=== PATIENT | female | born 1990 | race Caucasian/White ===

== ENCOUNTER 2019-01-22 23:06 | Inpatient (IN) | payer BC ==
[~2019-01-22] VITALS: Ht 160 cm; Wt 81.6 kg
[2019-01-22 23:10] VITALS: BP 130/90
--- NOTE | 2019-01-22 23:10 | NUR ---
ED Nurse Note: Pt BIBA after she was noted having a tonic-clonic seizure. Pt was sleeping at the time. Hospital personnel noted seizure activity while checking up on pt. Pt connected to monitor. VSS. Pt postictal, with slight confusion.
--- NOTE | 2019-01-22 23:25 | Emergency Room Report ---
History of Present Illness General Chief Complaint: Seizure Source: Patient, Friend, EMS Present Illness HPI Is a 28-year-old female with history of high blood pressure. She also has history of alcohol and benzodiazepine abuse. She is currently in a rehabilitation facility started today. She just came here from [place]. Her drug screen from this morning positive for benzodiazepine. She normally takes Klonopin to drug of choice. She also drank malt liquor. Last drink was yesterday. She presents with chief complaint of seizure. Witnessed by staff at the rehabilitation facility. It was a 2 minute tonic-clonic seizure activity. No incontinence of urine. She did have or trauma. Patient has no history of seizure. Allergies: Uncoded Allergies: PENICILLIN (Allergy, Unknown, 01/22/19) Patient History Past Medical History: see triage record, old chart reviewed, HTN Past Surgical History: other Pertinent Family History: none Social History: Reports: alcohol use; Denies: smoking Last Menstrual Period: unable to tell Now: No Immunizations: other Reviewed Nursing Documentation: PMH: Agreed; PSxH: Agreed Nursing Documentation-PMH Hx Hypertension: Yes Review of Systems Eye: Denies: eye pain, blurred vision ENT: Denies: ear pain, nose congestion, throat swelling Respiratory: Denies: cough, shortness of breath Cardiovascular: Denies: chest pain, palpitations Gastrointestinal: Denies: abdominal pain, diarrhea, nausea, vomiting Musculoskeletal: Denies: back pain, joint pain Skin: Denies: rash Neurological: Denies: headache, numbness Endocrine: Denies: increased thirst, increased urine Hematologic/Lymphatic: Denies: easy bruising All Other Systems: negative except mentioned in HPI Physical Exam Vital Signs Date Time Temp Pulse Resp B/P (MAP) Pulse Ox O2 Delivery O2 Flow Rate FiO2 01/22/19 23:03 98.6 100 18 130/90 97 vitals normal Sp02 EP Interpretation: reviewed, normal General Appearance: well appearing, no apparent distress, alert Head: normocephalic, atraumatic Eyes: bilateral eye PERRL, bilateral eye EOMI ENT: hearing grossly normal, normal pharynx, other - Abrasion to the tip of tongue Neck: full range of motion, supple, no meningismus Respiratory: chest non-tender, lungs clear, normal breath sounds Cardiovascular #1: regular rate, rhythm, no murmur Gastrointestinal: normal bowel sounds, non tender, no mass, no organomegaly, no bruit, non-distended Musculoskeletal: back normal, gait/station normal, normal range of motion Psychiatric: mood/affect normal Skin: warm/dry Procedures Critical Care Time Critical Care Time Critical care is mandated in this patient who presented with new onset seizure with severely low electrolytes. Patient require my urgent intervention to attenuate the risks of metabolic collapse which may lead to cardiovascular collapse and . Critical care time is 35 minutes excluding any reportable procedure. Critical care time included evaluation, multiple reevaluation, looking at old charts, interpreting laboratory and diagnostic data, discussing case with patient and family and consultants, and charting. Medical Decision Making Diagnostic Impression: Primary Impression: New onset seizure Additional Impressions: Hypokalemia Hyponatremia Hypomagnesemia ER Course Patient presents with new onset seizure. She has very low electrolytes. I spoke with her mom who is in [place]. Mom said that she has a problem with low potassium every time they go to the ER/urgent care for her rehabilitation. Said that potassium level usually runs in the 2 and she get medication discharge. No problem with sodium. Even though her electrolytes are severely low, EKG is normal and vitals are stable. Patient walking around without any difficulty. No evidence of any bleed or mass on the CT scan. Discussed the case with Dr. Lopez who was admitted for Dr. Braden. Lab Results Impression labs with electrolytes abnormality EKG Diagnostic Results Rate: normal Rhythm: NSR ST Segments: no acute changes Rhythm Strip Diag. Results EP Interpretation: yes Rate: 80 Rhythm: NSR, no PVC's, no ectopy CT/MRI/US Diagnostic Results CT/MRI/US Diagnostic Results : Imaging Test Ordered: CT head Impression negative per radiologist Last Vital Signs Date Time Temp Pulse Resp B/P (MAP) Pulse Ox O2 Delivery O2 Flow Rate FiO2 01/22/19 23:03 98.6 100 18 130/90 97 Status: improved Disposition: ADMITTED INPATIENT Condition: Serious Deny Esquivel MD Jan 22, 2019 23:25
[2019-01-22 23:29] LABS: HEMATOCRIT 36.4 % (37.0-47.0); HEMOGLOBIN 13.9 G/DL (12.0-16.0); MEAN CORPUSCULAR VOLUME 87 FL (80-99); PLATELET COUNT 72 K/UL (150-450); RED BLOOD COUNT 4.17 M/UL (4.20-5.40); RED CELL DISTRIBUTION WIDTH 12.3 % (11.6-14.8); WHITE BLOOD COUNT 9.2 K/UL (4.8-10.8)
[2019-01-22] MEDS ORDERED: levETIRAcetam 1,000mg/NS100ml 100 ML IVPB ONE (23:30)
[2019-01-22 23:34] LABS: ANION GAP 17 mmol/L (5-15); BLOOD UREA NITROGEN 9 mg/dL (7-18); CALCIUM 7.2 MG/DL (8.5-10.1); CARBON DIOXIDE 25 MMOL/L (21-32); CHLORIDE 76 MMOL/L (98-107); CREATININE 1.1 MG/DL (0.55-1.30)
[2019-01-22 23:47] LABS: POTASSIUM 2.1 MMOL/L (3.5-5.1); SODIUM 118 MMOL/L (136-145)
[2019-01-22 23:51] LABS: APPEARANCE,URINE CLEAR; BILIRUBIN, URINE NEGATIVE (NEGATIVE); COLOR,URINE PALE YELLOW; GLUCOSE, URINE (UA) NEGATIVE (NEGATIVE); KETONES,URINE NEGATIVE (NEGATIVE); LEUKOCYTE ESTERASE ,URINE NEGATIVE (NEGATIVE); NITRITE,URINE NEGATIVE (NEGATIVE); PH,URINE 7 (4.5-8.0); PROTEIN,URINE 3+ (NEGATIVE); UROBILINOGEN,URINE NORMAL MG/DL (0.0-1.0)
[2019-01-23 00:19] LABS: ANION GAP 13 mmol/L (5-15); BLOOD UREA NITROGEN 9 mg/dL (7-18); CALCIUM 7.2 MG/DL (8.5-10.1); CARBON DIOXIDE 29 MMOL/L (21-32); CHLORIDE 77 MMOL/L (98-107)
[2019-01-23 00:22] LABS: POTASSIUM 1.7 MMOL/L (3.5-5.1); SODIUM 118 MMOL/L (136-145)
--- NOTE | 2019-01-23 01:10 | Diagnostic Imaging Report ---
EXAM: CT Head Without Intravenous Contrast CLINICAL HISTORY: SZ TECHNIQUE: Axial computed tomography images of the head/brain without intravenous contrast. CTDI is 70 mGy and DLP is 1326 mGy-cm. One or more of the following dose reduction techniques were used: automated exposure control, adjustment of the mA and/or kV according to patient size, use of iterative reconstruction technique. COMPARISON: No relevant prior studies available. FINDINGS: Brain: No acute intracranial hemorrhage or cortical ischemia. Ventricles: Mild ventriculomegaly, cannot exclude normal pressure hydrocephalus. Bones/joints: Unremarkable. No acute fracture. Soft tissues: Unremarkable. Sinuses: Unremarkable as visualized. Mastoid air cells: Unremarkable as visualized. IMPRESSION: 1. No acute intracranial hemorrhage or cortical ischemia. 2. Mild ventriculomegaly, cannot exclude normal pressure hydrocephalus.
[2019-01-23] MEDS ORDERED: AMLODIPINE BES2.5 MG ORAL (01:32)
[2019-01-23] MEDS ORDERED: HYDROCHLOROTH12.5 M2 ORAL (01:32)
[2019-01-23] MEDS ORDERED: METOPROLOL TART25 MG ORAL (01:32)
--- NOTE | 2019-01-23 01:55 | NUR ---
ED Nurse Note: Pt resting comfortably. Has a RAC20g with Mag sulfate and a LAC with KCL currently running. VSS. Showing no signs of acute distress. Side rails padded. Will continue to monitor.
--- NOTE | 2019-01-23 02:00 | NUR ---
ED Nurse Note: Called Dilma Oviedo (mother) and advised of pt's admission. Phone #: [phone]
--- NOTE | 2019-01-23 03:48 | NUR ---
ED Nurse Note: Report given to BRITT Reyes. Pt currently resting comfotably. VSS. Showing no signs of distress.
--- NOTE | 2019-01-23 04:00 | NUR ---
ED Nurse Note: Pt brought up at 0400, accompanied by RN and ERT and connected to potline monitor. VSS. Shows no signs of cardiac or respiratory distress. Report given to BRITT Reyes and taken to telemetry unit rm [id number]. Family members called and advised of visit. All belongings taken upstairs along with belongings list.
[2019-01-23 04:20] VITALS: BP 105/60
--- NOTE | 2019-01-23 04:20 | NUR ---
Got report from Isela DE LA TORRE from ER. Initial assessment done. VSS. Pt in stable condition. Denies any pain. No s/s of distress noted. Pt resting in bed comfortably. Bed in low and locked position, call light within reach, bedside table within reach. Awaiting orders. Continue to monitor. Addendum: 01/23/19 at 0508 by Sourav Fisher RN Orders given by Dr. Lopez. Orders placed. continue to monitor.
--- NOTE | 2019-01-23 07:45 | NUR ---
HAND-OFF: Report given to meghana monae. endorsed plan of care.
--- NOTE | 2019-01-23 07:55 | NUR ---
NURSE NOTES: Report received from BRITT Nevarez. Patient AOx4. In RA. Denies any SOB or pain. IV on both L & R AC 20g, patent, flushed and SL. Seizure protocol in place. Bed in lowest position, side rails upx2, brakes engaged, call light within easy reach.
[2019-01-23 08:06] LABS: HEMATOCRIT 32.3 % (37.0-47.0); HEMOGLOBIN 12.4 G/DL (12.0-16.0); MEAN CORPUSCULAR VOLUME 88 FL (80-99); PLATELET COUNT 53 K/UL (150-450); RED BLOOD COUNT 3.67 M/UL (4.20-5.40); WHITE BLOOD COUNT 4.3 K/UL (4.8-10.8)
[2019-01-23 08:41] LABS: ANION GAP 13 mmol/L (5-15); BLOOD UREA NITROGEN 6 mg/dL (7-18); CALCIUM 7.3 MG/DL (8.5-10.1); CARBON DIOXIDE 23 MMOL/L (21-32); CHLORIDE 90 MMOL/L (98-107); CREATININE 0.8 MG/DL (0.55-1.30); POTASSIUM 2.5 MMOL/L (3.5-5.1); SODIUM 127 MMOL/L (136-145)
[2019-01-23] MEDS ORDERED: Sodium Chloride for KCL Premix x 2hrs IV SCH (10:00)
[2019-01-23] MEDS ORDERED: Gadavist 7.5mMol/7.5ml vial IV PRN (11:45)
[2019-01-23 12:00] VITALS: BP 131/84
--- NOTE | 2019-01-23 12:03 | Consultation ---
Consult Note Consult Note asked to assist with management of fluid and electrolytes s a 28-year-old female with history of high blood pressure. She also has history of alcohol and benzodiazepine abuse. She is currently in a rehabilitation facility started today. She just came here from [place]. Her drug screen from this morning positive for benzodiazepine. She normally takes Klonopin to drug of choice. She also drank malt liquor. Last drink was yesterday. She presents with chief complaint of seizure. Witnessed by staff at the rehabilitation facility. It was a 2 minute tonic-clonic seizure activity. No incontinence of urine. She did have or trauma. Patient has no history of seizure. Allergies: Uncoded Allergies: PENICILLIN (Allergy, Unknown, 01/22/19) Assessment/Plan Sz disorders Low Mag Low K Low NA HTN Mag IV BP med adjustment NS and KCL Monitor lytes per orders Mukul Mccracken MD Jan 23, 2019 12:03
[2019-01-23] MEDS ORDERED: Metoprolol 25mg tab ORAL SCH (12:15)
[2019-01-23 12:44] LABS: PHOSPHORUS 2.3 MG/DL (2.5-4.9)
[2019-01-23] MEDS: Thiamine 100mg tab ORAL SCH (13:11)
--- NOTE | 2019-01-23 14:24 | NUR ---
CASE MANAGEMENT: REVIEW BIBA FROM [facility] CC: SEIZURE SI: SEIZURE . HYPOKALEMIA T 98.6 HR 100 RR 18 BP 130/90 SAT 97% ROOM AIR MAG 0.3 K 2.5 IS: KEPPRA IV X1 KCl 20mEq IV X1 MAG SULFATE IV X1 NS IVF BOLUS X1 PATIENT ADMITTED TO TELEMETRY UNIT 01/23/2019 DCP: PATIENT IS FROM [facility]
[2019-01-23 15:01] LABS: POTASSIUM 2.6 MMOL/L (3.5-5.1)
[2019-01-23] MEDS: D5NS w/KCl 40mEq 1000ml 1,000 ML IV SCH (15:46)
[2019-01-23 16:00] VITALS: BP 127/75
[2019-01-23] MEDS: Magnesium Sulfate 1gm/100ml IVPB SCH ×2 (17:31→18:16)
--- NOTE | 2019-01-23 19:30 | NUR ---
NURSE NOTES: Communicated new Mg lab results with Dr. Mccracken, Mg IVPB order stopped.
[2019-01-23 20:00] VITALS: BP 130/81
--- NOTE | 2019-01-23 20:00 | NUR ---
NURSE NOTES: Received report from BRITT Klein. Patient awake, alert and verbally responsive. No SOB,no acute distress, denies any pain nor any discomfort at this time. Pt ambulatory, observed going to the bathroom with steady gait. IV sites on R AC # 20 and L Ac #20, both patent and intact, L one connected to D5NS with 40 mEq KCl at 75 ml/hr. Sz precautions in place. Per Latoya, Mg orders just discontinued by Dr. Mccracken, mg level within range. Also with order for US Abd in AM, explained to pt that will hold breakfast in AM until the ultrasound done, verbalized understanding. Bed at lowest position and call light within reach. Will continue plan of care.
--- NOTE | 2019-01-23 20:11 | Consultation ---
History of Present Illness General Chief Complaint: Seizure Present Illness Allergies: Uncoded Allergies: PENICILLIN (Allergy, Unknown, 01/22/19) Medication History Scheduled Amlodipine Besylate* (Amlodipine Besylate*), 2.5 MG ORAL DAILY, (Reported) Hydrochlorothiazide* (Hydrochlorothiazide*), 12.5 MG ORAL DAILY, (Reported) Metoprolol Tartrate* (Metoprolol Tartrate*), 25 MG ORAL EVERY 12 HOURS, ( Reported) Patient History Healthcare decision maker Resuscitation status Advanced Directive on File Physical Exam Last 24 Hour Vital Signs Date Time Temp Pulse Resp B/P (MAP) Pulse Ox O2 Delivery O2 Flow Rate FiO2 01/23/19 16:00 88 01/23/19 16:00 98.1 87 18 127/75 (92) 99 01/23/19 13:29 100 131/84 01/23/19 12:00 98.2 100 16 131/84 (100) 100 01/23/19 12:00 78 01/23/19 08:00 101 01/23/19 05:54 Room Air 01/23/19 04:23 98.9 98 23 120/98 96 Room Air 01/23/19 04:20 86 01/23/19 04:20 98.0 92 18 105/60 (75) 98 01/22/19 23:10 98.6 100 18 130/90 97 Room Air 01/22/19 23:10 100 18 Room Air 01/22/19 23:03 98.6 100 18 130/90 97 Intake and Output 01/22/19 01/23/19 19:00 07:00 Intake Total 2550 ml Balance 2550 ml IV Total 2550 ml # Voids 1 Laboratory Tests Test 01/22/19 23:00 01/22/19 23:35 01/22/19 23:59 01/23/19 07:48 White Blood Count 9.2 K/UL (4.8-10.8) 4.3 K/UL (4.8-10.8) #L Red Blood Count 4.17 M/UL (4.20-5.40) L 3.67 M/UL (4.20-5.40) L Hemoglobin 13.9 G/DL (12.0-16.0) 12.4 G/DL (12.0-16.0) Hematocrit 36.4 % (37.0-47.0) L 32.3 % (37.0-47.0) L Mean Corpuscular Volume 87 FL (80-99) 88 FL (80-99) Mean Corpuscular Hemoglobin 33.3 PG (27.0-31.0) H 33.7 PG (27.0-31.0) H Mean Corpuscular Hemoglobin Concent 38.2 G/DL (32.0-36.0) H 38.3 G/DL (32.0-36.0) H Red Cell Distribution Width 12.3 % (11.6-14.8) 13.0 % (11.6-14.8) Platelet Count 72 K/UL (150-450) L 53 K/UL (150-450) L Mean Platelet Volume 8.8 FL (6.5-10.1) 7.8 FL (6.5-10.1) Neutrophils (%) (Auto) % (45.0-75.0) % (45.0-75.0) Lymphocytes (%) (Auto) % (20.0-45.0) % (20.0-45.0) Monocytes (%) (Auto) % (1.0-10.0) % (1.0-10.0) Eosinophils (%) (Auto) % (0.0-3.0) % (0.0-3.0) Basophils (%) (Auto) % (0.0-2.0) % (0.0-2.0) Sodium Level 118 MMOL/L (136-145) *L 118 MMOL/L (136-145) *L 127 MMOL/L (136-145) L Potassium Level 2.1 MMOL/L (3.5-5.1) *L 1.7 MMOL/L (3.5-5.1) *L 2.5 MMOL/L (3.5-5.1) *L Chloride Level 76 MMOL/L (98-107) L 77 MMOL/L (98-107) L 90 MMOL/L (98-107) L Carbon Dioxide Level 25 MMOL/L (21-32) 29 MMOL/L (21-32) 23 MMOL/L (21-32) Anion Gap 17 mmol/L (5-15) H 13 mmol/L (5-15) 13 mmol/L (5-15) Blood Urea Nitrogen 9 mg/dL (7-18) 9 mg/dL (7-18) 6 mg/dL (7-18) L Creatinine 1.1 MG/DL (0.55-1.30) 1.0 MG/DL (0.55-1.30) 0.8 MG/DL (0.55-1.30) Estimat Glomerular Filtration Rate 58.3 mL/min (>60) > 60 mL/min (>60) > 60 mL/min (>60) Glucose Level 145 MG/DL (74-106) H 145 MG/DL (74-106) H 122 MG/DL (74-106) H Calcium Level 7.2 MG/DL (8.5-10.1) L 7.2 MG/DL (8.5-10.1) L 7.3 MG/DL (8.5-10.1) L Urine Color Pale yellow Urine Appearance Clear Urine pH 7 (4.5-8.0) Urine Specific [place] 1.010 (1.005-1.035) Urine Protein 3+ (NEGATIVE) H Urine Glucose (UA) Negative (NEGATIVE) Urine Ketones Negative (NEGATIVE) Urine Blood 2+ (NEGATIVE) H Urine Nitrite Negative (NEGATIVE) Urine Bilirubin Negative (NEGATIVE) Urine Urobilinogen Normal MG/DL (0.0-1.0) Urine Leukocyte Esterase Negative (NEGATIVE) Urine RBC 2-4 /HPF (0 - 2) H Urine WBC 0-2 /HPF (0 - 2) Urine Squamous Epithelial Cells Few /LPF (NONE/OCC) Urine Bacteria Few /HPF (NONE) Urine HCG, Qualitative Negative (NEGATIVE) Magnesium Level 0.3 MG/DL (1.8-2.4) *L 1.2 MG/DL (1.8-2.4) L Differential Total Cells Counted 100 Neutrophils % (Manual) 71 % (45-75) Lymphocytes % (Manual) 22 % (20-45) Monocytes % (Manual) 7 % (1-10) Eosinophils % (Manual) 0 % (0-3) Basophils % (Manual) 0 % (0-2) Band Neutrophils 0 % (0-8) Platelet Estimate Decreased L Platelet Morphology Normal Red Blood Cell Morphology Normal Uric Acid 7.0 MG/DL (2.6-7.2) Phosphorus Level 2.3 MG/DL (2.5-4.9) L C-Reactive Protein, Quantitative < 0.4 mg/dL (0.00-0.90) Test 01/23/19 14:45 Potassium Level 2.6 MMOL/L (3.5-5.1) *L Magnesium Level 2.1 MG/DL (1.8-2.4) Height (Feet): 5 Height (Inches): 3.00 Weight (Pounds): 180 Medications Current Medications Medications (Trade) Dose Ordered Sig/Lul Route PRN Reason Start Time Stop Time Status Last Admin Dose Admin Clonidine HCl (Catapres Tab) 0.1 mg Q4H PRN ORAL bp over 160 syst 01/23/19 12:15 02/22/19 12:14 Dextrose (Dextrose 50%) 25 ml Q30M PRN IV Hypoglycemia 01/23/19 12:45 02/22/19 12:44 Dextrose (Dextrose 50%) 50 ml Q30M PRN IV Hypoglycemia 01/23/19 12:45 02/22/19 12:44 Dextrose/ Electrolytes 1,000 ml @ 75 mls/hr [id number] IV 01/23/19 13:00 02/22/19 12:59 01/23/19 15:46 Gadobutrol (Gadavist) 7.5 mmol NOW PRN IV RADIOLOGY 01/23/19 11:45 01/23/19 23:59 Levetiracetam (Keppra) 500 mg Q12HR ORAL 01/23/19 21:00 02/22/19 20:59 Metoprolol Tartrate (Lopressor) 25 mg Q12HR ORAL 01/23/19 21:00 02/22/19 20:59 Pantoprazole (Protonix) 40 mg EVERY 12 HOURS ORAL 01/23/19 12:15 02/22/19 12:14 01/23/19 13:10 Potassium Chloride (K-Dur) 40 meq THREE TIMES A DAY ORAL 01/23/19 12:00 02/22/19 11:59 01/23/19 18:15 Thiamine HCl (Vitamin B1) 100 mg DAILY ORAL 01/23/19 12:15 02/22/19 12:14 01/23/19 13:11 Blaine Figueroa MD Jan 23, 2019 20:11
--- NOTE | 2019-01-23 20:46 | NUR ---
HAND-OFF: Report given to BRITT Erwin. Patient in stable condition.
[2019-01-23] MEDS: Metoprolol 25mg tab ORAL SCH (20:47)
--- NOTE | 2019-01-23 21:58 | History and Physical ---
History of Present Illness General Date patient seen: Jan 23, 2019 Time patient seen: 09:10 Reason for Hospitalization: Seizure Present Illness HPI 28 year old female with hx of HTN, ETOH and benzo abuse was transferred from rehab facility s/p seizure. Per EMR, seizure lasted about 2 minutes, tonic- clonic, no urinary or bowel incontinence. Pt recently arrived from [place] and admitted to rehab facility today. States she has never had history of seizures before, denies hx of head trauma, fevers, chills, n/v/c/d, urinary complaints or abdominal complaints. Inthe ED, pt noted to have severe electrolyte abnormalities, EKG unremarkable, CT with no bleed or mass, pts electrolytes were repleted and loaded with keppra. Allergies: Uncoded Allergies: PENICILLIN (Allergy, Unknown, 01/22/19) Medication History Scheduled Amlodipine Besylate* (Amlodipine Besylate*), 2.5 MG ORAL DAILY, (Reported) Hydrochlorothiazide* (Hydrochlorothiazide*), 12.5 MG ORAL DAILY, (Reported) Metoprolol Tartrate* (Metoprolol Tartrate*), 25 MG ORAL EVERY 12 HOURS, ( Reported) Patient History Healthcare decision maker Resuscitation status Advanced Directive on File Past Medical/Surgical History Past Medical/Surgical History: (1) Hypertension (2) Thrombocythemia (3) Hypomagnesemia (4) Hypokalemia (5) Hyponatremia (6) New onset seizure Review of Systems Constitutional: Reports: no symptoms Eye: Reports: no symptoms ENT: Reports: no symptoms Respiratory: Reports: no symptoms Cardiovascular: Reports: no symptoms Gastrointestinal: Reports: no symptoms Genitourinary: Reports: no symptoms Musculoskeletal: Reports: no symptoms Skin: Reports: no symptoms Psychiatric: Reports: no symptoms Neurological: Reports: no symptoms Endocrine: Reports: no symptoms Hematologic/Lymphatic: Reports: no symptoms Physical Exam General Appearance: WD/WN, no apparent distress, alert, lethargic Lines, tubes and drains: peripheral HEENT: normocephalic, atraumatic, anicteric, mucous membranes moist, PERRL Neck: non-tender, normal alignment, supple, normal inspection Respiratory/Chest: chest wall non-tender, lungs clear, normal breath sounds, no respiratory distress, no accessory muscle use Cardiovascular/Chest: normal peripheral pulses, normal rate, regular rhythm, regularly irregular Abdomen: normal bowel sounds, non tender, soft, no organomegaly, no mass Extremities: normal range of motion Skin Exam: normal pigmentation 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 Musculoskeletal: normal muscle bulk Last 24 Hour Vital Signs Date Time Temp Pulse Resp B/P (MAP) Pulse Ox O2 Delivery O2 Flow Rate FiO2 01/23/19 20:47 90 130/81 01/23/19 16:00 88 01/23/19 16:00 98.1 87 18 127/75 (92) 99 01/23/19 13:29 100 131/84 01/23/19 12:00 98.2 100 16 131/84 (100) 100 01/23/19 12:00 78 01/23/19 09:00 Room Air 01/23/19 08:00 101 01/23/19 05:54 Room Air 01/23/19 04:23 98.9 98 23 120/98 96 Room Air 01/23/19 04:20 86 01/23/19 04:20 98.0 92 18 105/60 (75) 98 01/22/19 23:10 98.6 100 18 130/90 97 Room Air 01/22/19 23:10 100 18 Room Air 01/22/19 23:03 98.6 100 18 130/90 97 Intake and Output 01/22/19 01/23/19 19:00 07:00 Intake Total 2550 ml Balance 2550 ml IV Total 2550 ml # Voids 1 Laboratory Tests Test 01/22/19 23:00 01/22/19 23:35 01/22/19 23:59 01/23/19 07:48 White Blood Count 9.2 K/UL (4.8-10.8) 4.3 K/UL (4.8-10.8) #L Red Blood Count 4.17 M/UL (4.20-5.40) L 3.67 M/UL (4.20-5.40) L Hemoglobin 13.9 G/DL (12.0-16.0) 12.4 G/DL (12.0-16.0) Hematocrit 36.4 % (37.0-47.0) L 32.3 % (37.0-47.0) L Mean Corpuscular Volume 87 FL (80-99) 88 FL (80-99) Mean Corpuscular Hemoglobin 33.3 PG (27.0-31.0) H 33.7 PG (27.0-31.0) H Mean Corpuscular Hemoglobin Concent 38.2 G/DL (32.0-36.0) H 38.3 G/DL (32.0-36.0) H Red Cell Distribution Width 12.3 % (11.6-14.8) 13.0 % (11.6-14.8) Platelet Count 72 K/UL (150-450) L 53 K/UL (150-450) L Mean Platelet Volume 8.8 FL (6.5-10.1) 7.8 FL (6.5-10.1) Neutrophils (%) (Auto) % (45.0-75.0) % (45.0-75.0) Lymphocytes (%) (Auto) % (20.0-45.0) % (20.0-45.0) Monocytes (%) (Auto) % (1.0-10.0) % (1.0-10.0) Eosinophils (%) (Auto) % (0.0-3.0) % (0.0-3.0) Basophils (%) (Auto) % (0.0-2.0) % (0.0-2.0) Sodium Level 118 MMOL/L (136-145) *L 118 MMOL/L (136-145) *L 127 MMOL/L (136-145) L Potassium Level 2.1 MMOL/L (3.5-5.1) *L 1.7 MMOL/L (3.5-5.1) *L 2.5 MMOL/L (3.5-5.1) *L Chloride Level 76 MMOL/L (98-107) L 77 MMOL/L (98-107) L 90 MMOL/L (98-107) L Carbon Dioxide Level 25 MMOL/L (21-32) 29 MMOL/L (21-32) 23 MMOL/L (21-32) Anion Gap 17 mmol/L (5-15) H 13 mmol/L (5-15) 13 mmol/L (5-15) Blood Urea Nitrogen 9 mg/dL (7-18) 9 mg/dL (7-18) 6 mg/dL (7-18) L Creatinine 1.1 MG/DL (0.55-1.30) 1.0 MG/DL (0.55-1.30) 0.8 MG/DL (0.55-1.30) Estimat Glomerular Filtration Rate 58.3 mL/min (>60) > 60 mL/min (>60) > 60 mL/min (>60) Glucose Level 145 MG/DL (74-106) H 145 MG/DL (74-106) H 122 MG/DL (74-106) H Calcium Level 7.2 MG/DL (8.5-10.1) L 7.2 MG/DL (8.5-10.1) L 7.3 MG/DL (8.5-10.1) L Urine Color Pale yellow Urine Appearance Clear Urine pH 7 (4.5-8.0) Urine Specific [place] 1.010 (1.005-1.035) Urine Protein 3+ (NEGATIVE) H Urine Glucose (UA) Negative (NEGATIVE) Urine Ketones Negative (NEGATIVE) Urine Blood 2+ (NEGATIVE) H Urine Nitrite Negative (NEGATIVE) Urine Bilirubin Negative (NEGATIVE) Urine Urobilinogen Normal MG/DL (0.0-1.0) Urine Leukocyte Esterase Negative (NEGATIVE) Urine RBC 2-4 /HPF (0 - 2) H Urine WBC 0-2 /HPF (0 - 2) Urine Squamous Epithelial Cells Few /LPF (NONE/OCC) Urine Bacteria Few /HPF (NONE) Urine HCG, Qualitative Negative (NEGATIVE) Magnesium Level 0.3 MG/DL (1.8-2.4) *L 1.2 MG/DL (1.8-2.4) L Differential Total Cells Counted 100 Neutrophils % (Manual) 71 % (45-75) Lymphocytes % (Manual) 22 % (20-45) Monocytes % (Manual) 7 % (1-10) Eosinophils % (Manual) 0 % (0-3) Basophils % (Manual) 0 % (0-2) Band Neutrophils 0 % (0-8) Platelet Estimate Decreased L Platelet Morphology Normal Red Blood Cell Morphology Normal Uric Acid 7.0 MG/DL (2.6-7.2) Phosphorus Level 2.3 MG/DL (2.5-4.9) L C-Reactive Protein, Quantitative < 0.4 mg/dL (0.00-0.90) Test 01/23/19 14:45 Potassium Level 2.6 MMOL/L (3.5-5.1) *L Magnesium Level 2.1 MG/DL (1.8-2.4) Height (Feet): 5 Height (Inches): 3.00 Weight (Pounds): 180 Medications Current Medications Medications (Trade) Dose Ordered Sig/Lul Route PRN Reason Start Time Stop Time Status Last Admin Dose Admin Clonidine HCl (Catapres Tab) 0.1 mg Q4H PRN ORAL bp over 160 syst 01/23/19 12:15 02/22/19 12:14 Dextrose (Dextrose 50%) 25 ml Q30M PRN IV Hypoglycemia 01/23/19 12:45 02/22/19 12:44 Dextrose (Dextrose 50%) 50 ml Q30M PRN IV Hypoglycemia 01/23/19 12:45 02/22/19 12:44 Dextrose/ Electrolytes 1,000 ml @ 75 mls/hr [id number] IV 01/23/19 13:00 02/22/19 12:59 01/23/19 15:46 Gadobutrol (Gadavist) 7.5 mmol NOW PRN IV RADIOLOGY 01/23/19 11:45 01/23/19 23:59 Levetiracetam (Keppra) 500 mg Q12HR ORAL 01/23/19 21:00 02/22/19 20:59 01/23/19 20:46 Metoprolol Tartrate (Lopressor) 25 mg Q12HR ORAL 01/23/19 21:00 02/22/19 20:59 01/23/19 20:47 Pantoprazole (Protonix) 40 mg EVERY 12 HOURS ORAL 01/23/19 12:15 02/22/19 12:14 01/23/19 20:46 Potassium Chloride (K-Dur) 40 meq THREE TIMES A DAY ORAL 01/23/19 12:00 02/22/19 11:59 01/23/19 18:15 Thiamine HCl (Vitamin B1) 100 mg DAILY ORAL 01/23/19 12:15 02/22/19 12:14 01/23/19 13:11 Assessment/Plan Status: stable Assessment/Plan Assessment 28 year old female with PMH of htn, etoh and benzo abuse presented admitted for new onset seizures Plan #New onset seizures likely multifactorial: electrolyte abnormalities/ ETOH w/d/ Benzo withdraw #ETOH abuse #Benzo abuse -seizure precautions -s/p keppra load in ED -CT head unremarkable -Neurology consulted -Will cont keppra for now -pending MRI brain -monitor for withdraw - no signs of withdraw on examination #Hypokalemia #Hypomagnesemia #Hyponatremia -repleted with IV -CTM -Appreciate nephrology consult -hold HCTZ #HTN -Cont metoprolol -discontinue HCTZ due to electrolyte abnormalities -can add norvasc if needed #THrombocytopenia -likley 2/2 etoh abuse, liver injury -pending LFT -pending abd US -CTM -hold heparin products -Hematology consulted Code status with discussion: Full I spent 75 min on this patients care, and 40 min was dedicated to counseling and /or care coordination - Marlen Pruett MD Jan 23, 2019 21:58
[2019-01-24] VITALS (7 sets, daily range): BP systolic 105–146; BP diastolic 60–93
[2019-01-24] MEDS: D5NS w/KCl 40mEq 1000ml 1,000 ML IV SCH (03:00)
--- NOTE | 2019-01-24 03:03 | NUR ---
NURSE NOTES: Patient asleep, breathing even and unlabored, no s/sx of pain nor any discomfort at this time. No episode of seizure noted at this time. Bed at lowest position, call light within reach. Will continue to monitor.
--- NOTE | 2019-01-24 05:16 | Consultation ---
DATE OF CONSULTATION: 01/23/2019 NEUROLOGICAL CONSULTATION CONSULTING PHYSICIAN: Mauro Villa M.D. CHIEF COMPLAINT: This is a first [facility] admission for this 28-year-old right-handed white female alcoholic, who was admitted with a chief complaint of seizure. HISTORY OF PRESENT ILLNESS: The patient's family just came here from [place]. She has a history of alcohol and benzodiazepine abuse and told me she last stopped drinking two weeks ago. She also complained of a lot of diarrhea. She denied any other drug abuse, although she apparently was on Klonopin. Other history obtained, her last drink was yesterday. She was at a rehabilitation facility, had a generalized seizure lasting 2 minutes and without incontinence and was brought here by paramedics. In the ER, she had a CT scan of the brain, which revealed mild ventriculomegaly. She had a serum sodium of 118 with a potassium of 2.1, glucose of 145, calcium of 7.2. Her magnesium was initially 0.3. She was given magnesium in the ER. Her serum sodium today is 127. Her magnesium today is 1.2. Her chloride was 76 on admission, now it is 90. BUN was 9 on admission with a creatinine of 1.1. The patient's hemoglobin was 13.9, but the RBC count was low at 4.17. There was mild microcytosis noted. Platelet count was 72,000. She had an EKG, which revealed a prolonged QT interval, highly abnormal. The patient was started on Keppra 1000 mg and given 1 g of magnesium sulfate . She is also started on potassium and normal saline. Urinalysis revealed +2 blood in the urine, +3 protein, specific gravity was 1.010, urine pH was 7, and has a few bacteria in the urine. There was some positive benzodiazepines in the urine. PAST MEDICAL HISTORY/PAST MEDICAL ILLNESSES: The patient has had some headache problems in the past, but not recently. She has tremor in her hands and arms recently. There are no previous seizures. No gait disorder. There is no diplopia, loss of smell or taste or blurred vision. She denies any hearing loss or tinnitus. She complains of dizzy spells, but cannot describe them. Her memory is "good." She complains of muscle weakness in the leg began yesterday or the day before. This was associated with some dizziness. She denies any vomiting. She impaired. She used to drink one bottle a day, probably malt liquor. She denies any febrile seizures and no head injuries or strokes. No fever or chills. The patient has a family history of Alzheimer disease and Parkinson's. Alcohol and drug abuse, see above. ALLERGIES: She is allergic to penicillin. HABITS: See above. She smokes only while drinking and as much as a pack a day. She denies illegal drug use. SURGERIES: She had a and a lap band in April 2010. She used to weigh 232 pounds. FAMILY HISTORY: Mother has hypertension. Her father is allegedly in good health. Her brother is allegedly in good health. REVIEW OF SYSTEMS: Her appetite is "non-existing" for a few days. There is no abdominal pain.CARDIOPULMONARY: She complains of occasional shortness of breath. There is no chronic cough or hemoptysis. She has significant chest pain. The rest of the review of systems is noncontributory. PHYSICAL EXAMINATION: GENERAL: She is a well-developed, obese woman, lying in bed, in no acute distress. VITAL SIGNS: Blood pressure is 120/90, pulse oximetry of 96% on room air, temperature is 98.6 degrees, pulse rate is 101 and regular, and respiratory rate is 23. HEENT: Examination of the head, ears, eye, nose, mouth, and throat is basically intact without evidence of head injuries. She had abrasions under the tongue laterally. NECK: There is no tenderness to palpation or muscle spasm. Limitation of motion. Supple. Carotids are +2 without any bruits. LUNGS: Clear to auscultation. CARDIOVASCULAR: PMI was not felt. JVP appeared to be flat. The patient's heart tones are somewhat distant. She had a normal S1 and S2, it is physiologically split, I cannot hear S3, S4, murmurs, or rubs. ABDOMEN: Abdomen is obese. Bowel sounds intact. I felt the liver edge. There is no tenderness of the liver. No evidence of splenomegaly. Bowel sounds were intact. BACK: There is no tenderness to percussion. No muscle spasms. EXTREMITIES: Peripheral pulses are +2. There were some abrasions in the extremities. NEUROLOGIC: Mental status, she is alert and awake. Judgment, her judgment is fair. Affect was appropriate. Her mood is a little flat. Memory, past memory is intact to date of , mother's maiden name and recalls 3/3 objects, recent recall is 2/3 objects. Intellect, similarities are abstract . . Orientation, she knew it is 01/23/2019, and knows it is Friday. She knows she is in the hospital and knows which one. She knew it is the second floor. Person, she was oriented to person. Language function, spoken speech was slow without paraphasias. Comprehension and repetitions were intact. There was no confusion or finger agnosia. She could spell world backwards and forwards. CRANIAL NERVE EXAMINATION: CRANIAL NERVE II: Visual hunt are intact to confrontation. Visual acuity not tested. CRANIAL NERVES III, IV, AND : Extraocular motility was full. Saccade pursuit . Pupils are 5 mm round and light reactive. CRANIAL NERVE V: Facial and corneal sensations were intact to fine touch. Pterygoid strength is 5/5. CRANIAL NERVE VII: Facial strength is 5/5 bilaterally. CRANIAL NERVE VIII: Auditory acuity was intact bilaterally. CRANIAL NERVES IX AND X: Gag is intact bilaterally. CRANIAL NERVE XI: Sternocleidomastoid strength is 5/5. CRANIAL NERVE XII: Tongue protrudes in the midline without fasciculations or atrophy. MUSCULOSKELETAL: Muscle bulk and tone are normal. Strength is 5/5 proximally and distally without pronator drift. However, there is fine tremor with the hands extended. No asterixis noted. Reflexes are +2 in the upper extremities, +1.5 to 2 at the knees, 0 at the ankles with downgoing toes and testing for Babinski response. COORDINATION: [id number] with end point tremor bilaterally. [id number] testing is normal. Rapid alternating movements are slow. GAIT AND STATION: Not tested. SENSORY: Pinprick, light touch, and proprioception intact. IMPRESSION: The patient's history is problematic. Her seizure is probably due to at least three things: 1. Low magnesium. 2. Alcohol withdrawal. 3. Hyponatremia. Technically, this is a reactive seizure and does not need to be treated. However, I will continue her Keppra for the time being until she is at least stable and can think about tapering it. The dose can be 500 mg b.i.d. The patient deserves at least one workup. The patient has ventriculomegaly on the CT scan, does not appear to have a history of hydrocephalus, may just be atrophy. MRI scan of the brain and EEG should be attained. PLAN: 1. Keppra 500 mg p.o. b.i.d. 2. EEG. 3. MRI scan of the brain. 4. Continue electrolyte replacement. 5. RPR and FTA. 6. Evaluate for liver disease and B12 level. Mauro Villa MD DR: TEN JOB#: [id number] CC:
--- NOTE | 2019-01-24 07:08 | NUR ---
HAND-OFF: Report given to BRITT Guy. No episodes of sz at this shift.Endorsed plan of care.
--- NOTE | 2019-01-24 07:30 | NUR ---
NURSE NOTES: Received report from BRITT Patricia. Pt is laying in bed. No distress noted. Bed is in lowest position, side rails up X2, and call light is within reach. Will continue to monitor.
[2019-01-24 08:26] LABS: HEMATOCRIT 30.4 % (37.0-47.0); HEMOGLOBIN 11.1 G/DL (12.0-16.0); MEAN CORPUSCULAR VOLUME 92 FL (80-99); PLATELET COUNT 66 K/UL (150-450); RED BLOOD COUNT 3.29 M/UL (4.20-5.40); RED CELL DISTRIBUTION WIDTH 14.5 % (11.6-14.8); WHITE BLOOD COUNT 3.7 K/UL (4.8-10.8)
[2019-01-24] MEDS: Thiamine 100mg tab ORAL SCH (08:32)
[2019-01-24] MEDS: Metoprolol 25mg tab ORAL SCH (08:33)
[2019-01-24 09:04] LABS: ALANINE AMINOTRANSFERASE 134 U/L (12-78); ALBUMIN 2.9 G/DL (3.4-5.0); ALBUMIN/GLOBULIN RATIO 0.9 (1.0-2.7); ALKALINE PHOSPHATASE 209 U/L (46-116); ANION GAP 8 mmol/L (5-15); ASPARTATE AMINO TRANSFERASE 240 U/L (15-37); BILIRUBIN,TOTAL 2.2 MG/DL (0.2-1.0); BLOOD UREA NITROGEN 2 mg/dL (7-18); CALCIUM 8.1 MG/DL (8.5-10.1); CARBON DIOXIDE 27 MMOL/L (21-32); CHLORIDE 102 MMOL/L (98-107); CHOLESTEROL 174 MG/DL (< 200); CREATINE KINASE 275 U/L (26-308); CREATININE 0.6 MG/DL (0.55-1.30); GAMMA GLUTAMYL TRANSPEPTIDASE 3184 U/L (5-85); HDL CHOLESTEROL 20 MG/DL (40-60); PHOSPHORUS 1.5 MG/DL (2.5-4.9); POTASSIUM 3.2 MMOL/L (3.5-5.1); SODIUM 137 MMOL/L (136-145); TRIGLYCERIDES 486 MG/DL (30-150)
[2019-01-24 09:06] LABS: BILIRUBIN,DIRECT 1.2 MG/DL (0.0-0.3)
[2019-01-24] MEDS ORDERED: D5NS 1,000 ML IV SCH (09:20)
[2019-01-24 09:31] LABS: FERRITIN 1370 NG/ML (8-388); LACTATE DEHYDROGENASE 354 U/L (81-234)
[2019-01-24] MEDS ORDERED: Potassium Phosphate 30 MM in NS 275 ML IV SCH (11:00)
--- NOTE | 2019-01-24 12:23 | Nephrology Progress Note ---
Assessment/Plan Problem List: (1) Hypomagnesemia (2) Hypokalemia (3) Hyponatremia (4) Hypertension (5) New onset seizure (6) Alcoholic liver disease Assessment Sz disorders Low Mag Low K Low NA HTN Fatty / Alcoholic liver Plan Mag IV BP med adjustment NS and KCL Monitor lytes per orders Subjective ROS Limited/Unobtainable: No Constitutional: Reports: other - feels better Objective Objective Last 24 Hour Vital Signs Date Time Temp Pulse Resp B/P (MAP) Pulse Ox O2 Delivery O2 Flow Rate FiO2 01/24/19 09:00 Room Air 01/24/19 08:33 89 146/89 01/24/19 08:00 84 01/24/19 08:00 98.2 106 18 146/89 (108) 98 01/24/19 04:00 98.8 90 18 131/74 (93) 93 01/24/19 04:00 90 01/24/19 00:00 98.6 89 18 105/60 (75) 93 01/24/19 00:00 85 01/23/19 21:00 Room Air 01/23/19 20:47 90 130/81 01/23/19 20:00 96 01/23/19 20:00 97.9 78 18 130/81 (97) 99 01/23/19 16:00 88 01/23/19 16:00 98.1 87 18 127/75 (92) 99 01/23/19 13:29 100 131/84 Intake and Output 01/23/19 01/24/19 19:00 07:00 Intake Total 2800 ml 1350 ml Balance 2800 ml 1350 ml Intake Oral 2800 ml 600 ml IV Total 750 ml # Voids 4 5 # Bowel Movements 1 Laboratory Tests 01/23/19 14:45: Potassium Level 2.6*L, Magnesium Level 2.1 01/24/19 06:00: Urine Opiates Screen Negative, Urine Barbiturates Screen Negative, Phencyclidine (PCP) Screen Negative, Urine Amphetamines Screen Negative, Urine Benzodiazepines Screen Negative, Urine Cocaine Screen Negative, Urine Marijuana (THC) Screen Negative 01/24/19 07:51: Potassium Level 3.2L, Magnesium Level 1.9, White Blood Count 3.7L, Red Blood Count 3.29L, Hemoglobin 11.1L, Hematocrit 30.4L, Mean Corpuscular Volume 92, Mean Corpuscular Hemoglobin 33.7H, Mean Corpuscular Hemoglobin Concent 36.6H, Red Cell Distribution Width 14.5, Platelet Count 66L, Mean Platelet Volume 8.8, Neutrophils (%) (Auto) , Lymphocytes (%) (Auto) , Monocytes (%) (Auto) , Eosinophils (%) (Auto) , Basophils (%) (Auto) , Differential Total Cells Counted 100, Neutrophils % (Manual) 51, Lymphocytes % (Manual) 40, Monocytes % ( Manual) 3, Eosinophils % (Manual) 6H, Basophils % (Manual) 0, Band Neutrophils 0 , Platelet Estimate DecreasedL, Platelet Morphology Normal, Anisocytosis 1+, Reticulocyte Count 0.9, Haptoglobin [Pending], Fibrinogen 304, Sodium Level 137 , Chloride Level 102, Carbon Dioxide Level 27, Anion Gap 8, Blood Urea Nitrogen 2L, Creatinine 0.6, Estimat Glomerular Filtration Rate > 60, Glucose Level 130H , Hemoglobin A1c 5.9, Osmolality 286L, Uric Acid 4.8, Calcium Level 8.1L, Phosphorus Level 1.5L, Ferritin 1370H, Total Bilirubin 2.2H, Direct Bilirubin 1.2H, Gamma Glutamyl Transpeptidase 3184H, Aspartate Amino Transf (AST/SGOT) 240H, Alanine Aminotransferase (ALT/SGPT) 134H, Alkaline Phosphatase 209H, Lactate Dehydrogenase 354H, Total Creatine Kinase 275, Pro-B-Type Natriuretic Peptide 152H, Total Protein 6.1L, Albumin 2.9L, Globulin 3.2, Albumin/Globulin Ratio 0.9L, Triglycerides Level 486H, Cholesterol Level 174, LDL Cholesterol 73 , HDL Cholesterol 20L, Cholesterol/HDL Ratio 8.7H, Vitamin B12 Level 497, Folate 16.1, Thyroid Stimulating Hormone (TSH) 2.934, Hepatitis A IgM Antibody [ Pending], Hepatitis B Surface Antigen [Pending], Hepatitis B Core IgM Antibody [ Pending], Hepatitis C Antibody [Pending], HIV (1&2) Antibody Rapid Negative Height (Feet): 5 Height (Inches): 3.00 Weight (Pounds): 180 General Appearance: no apparent distress Cardiovascular: normal rate Respiratory/Chest: lungs clear Abdomen: soft, other - obese Mukul Mccracken MD Jan 24, 2019 12:23
--- NOTE | 2019-01-24 13:22 | General Progress Note ---
Assessment/Plan Assessment/Plan Assessment 28 year old female with PMH of htn, etoh and benzo abuse presented admitted for new onset seizures Plan #New onset seizures likely multifactorial: electrolyte abnormalities/ ETOH w/d/ Benzo withdraw #ETOH abuse #Benzo abuse -seizure precautions -s/p keppra load in ED -CT head unremarkable -Neurology consult appreciated -Will cont keppra for now -pending MRI brain -monitor for withdraw - no signs of withdraw on examination #Hypokalemia #Hypomagnesemia #Hyponatremia -repleted with IV -CTM -Appreciate nephrology consult -Improved- cont PRN repletion -hold HCTZ #HTN -BP improved -Cont metoprolol increased to 50mg BID -discontinue HCTZ due to electrolyte abnormalities -can add norvasc if needed #THrombocytopenia - improving #Transaminitis likely 2/2 ETOH #ETOH fatty liver -likley 2/2 etoh abuse, liver injury -pending abd US -CTM -hold heparin products -Hematology consulted -Avoid hepatic toxic drugs Downgrade to med/surg Code status with discussion: Full I spent 40 min on this patients care, and 32 min was dedicated to counseling and /or care coordination - Subjective Allergies: Uncoded Allergies: PENICILLIN (Allergy, Unknown, 01/22/19) Subjective Constitutional: Reports: no symptoms Eye: Reports: no symptoms ENT: Reports: no symptoms Respiratory: Reports: no symptoms Cardiovascular: Reports: no symptoms Gastrointestinal: Reports: no symptoms Genitourinary: Reports: no symptoms Musculoskeletal: Reports: no symptoms Skin: Reports: no symptoms Psychiatric: Reports: no symptoms Neurological: Reports: no symptoms Endocrine: Reports: no symptoms Hematologic/Lymphatic: Reports: no symptoms Objective Last 24 Hour Vital Signs Date Time Temp Pulse Resp B/P (MAP) Pulse Ox O2 Delivery O2 Flow Rate FiO2 01/24/19 12:00 98.7 86 18 122/80 (94) 97 01/24/19 09:00 Room Air 01/24/19 08:33 89 146/89 01/24/19 08:00 84 01/24/19 08:00 98.2 106 18 146/89 (108) 98 01/24/19 04:00 98.8 90 18 131/74 (93) 93 01/24/19 04:00 90 01/24/19 00:00 98.6 89 18 105/60 (75) 93 01/24/19 00:00 85 01/23/19 21:00 Room Air 01/23/19 20:47 90 130/81 01/23/19 20:00 96 01/23/19 20:00 97.9 78 18 130/81 (97) 99 01/23/19 16:00 88 01/23/19 16:00 98.1 87 18 127/75 (92) 99 01/23/19 13:29 100 131/84 Intake and Output 01/23/19 01/24/19 19:00 07:00 Intake Total 2800 ml 1350 ml Balance 2800 ml 1350 ml Intake Oral 2800 ml 600 ml IV Total 750 ml # Voids 4 5 # Bowel Movements 1 Laboratory Tests 01/23/19 14:45: Potassium Level 2.6*L, Magnesium Level 2.1 01/24/19 06:00: Urine Opiates Screen Negative, Urine Barbiturates Screen Negative, Phencyclidine (PCP) Screen Negative, Urine Amphetamines Screen Negative, Urine Benzodiazepines Screen Negative, Urine Cocaine Screen Negative, Urine Marijuana (THC) Screen Negative 01/24/19 07:51: Potassium Level 3.2L, Magnesium Level 1.9, White Blood Count 3.7L, Red Blood Count 3.29L, Hemoglobin 11.1L, Hematocrit 30.4L, Mean Corpuscular Volume 92, Mean Corpuscular Hemoglobin 33.7H, Mean Corpuscular Hemoglobin Concent 36.6H, Red Cell Distribution Width 14.5, Platelet Count 66L, Mean Platelet Volume 8.8, Neutrophils (%) (Auto) , Lymphocytes (%) (Auto) , Monocytes (%) (Auto) , Eosinophils (%) (Auto) , Basophils (%) (Auto) , Differential Total Cells Counted 100, Neutrophils % (Manual) 51, Lymphocytes % (Manual) 40, Monocytes % ( Manual) 3, Eosinophils % (Manual) 6H, Basophils % (Manual) 0, Band Neutrophils 0 , Platelet Estimate DecreasedL, Platelet Morphology Normal, Anisocytosis 1+, Reticulocyte Count 0.9, Haptoglobin [Pending], Fibrinogen 304, Sodium Level 137 , Chloride Level 102, Carbon Dioxide Level 27, Anion Gap 8, Blood Urea Nitrogen 2L, Creatinine 0.6, Estimat Glomerular Filtration Rate > 60, Glucose Level 130H , Hemoglobin A1c 5.9, Osmolality 286L, Uric Acid 4.8, Calcium Level 8.1L, Phosphorus Level 1.5L, Ferritin 1370H, Total Bilirubin 2.2H, Direct Bilirubin 1.2H, Gamma Glutamyl Transpeptidase 3184H, Aspartate Amino Transf (AST/SGOT) 240H, Alanine Aminotransferase (ALT/SGPT) 134H, Alkaline Phosphatase 209H, Lactate Dehydrogenase 354H, Total Creatine Kinase 275, Pro-B-Type Natriuretic Peptide 152H, Total Protein 6.1L, Albumin 2.9L, Globulin 3.2, Albumin/Globulin Ratio 0.9L, Triglycerides Level 486H, Cholesterol Level 174, LDL Cholesterol 73 , HDL Cholesterol 20L, Cholesterol/HDL Ratio 8.7H, Vitamin B12 Level 497, Folate 16.1, Thyroid Stimulating Hormone (TSH) 2.934, Hepatitis A IgM Antibody [ Pending], Hepatitis B Surface Antigen [Pending], Hepatitis B Core IgM Antibody [ Pending], Hepatitis C Antibody [Pending], HIV (1&2) Antibody Rapid Negative Height (Feet): 5 Height (Inches): 3.00 Weight (Pounds): 180 Objective General Appearance: WD/WN, no apparent distress, alert, lethargic Lines, tubes and drains: peripheral HEENT: normocephalic, atraumatic, anicteric, mucous membranes moist, PERRL Neck: non-tender, normal alignment, supple, normal inspection Respiratory/Chest: chest wall non-tender, lungs clear, normal breath sounds, no respiratory distress, no accessory muscle use Cardiovascular/Chest: normal peripheral pulses, normal rate, regular rhythm, regularly irregular Abdomen: normal bowel sounds, non tender, soft, no organomegaly, no mass Extremities: normal range of motion Skin Exam: normal pigmentation 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
--- NOTE | 2019-01-24 15:10 | Consultation ---
History of Present Illness General Chief Complaint: Seizure Present Illness Allergies: Uncoded Allergies: PENICILLIN (Allergy, Unknown, 01/22/19) Medication History Scheduled Amlodipine Besylate* (Amlodipine Besylate*), 2.5 MG ORAL DAILY, (Reported) Hydrochlorothiazide* (Hydrochlorothiazide*), 12.5 MG ORAL DAILY, (Reported) Metoprolol Tartrate* (Metoprolol Tartrate*), 25 MG ORAL EVERY 12 HOURS, ( Reported) Patient History Healthcare decision maker Resuscitation status Advanced Directive on File Physical Exam Last 24 Hour Vital Signs Date Time Temp Pulse Resp B/P (MAP) Pulse Ox O2 Delivery O2 Flow Rate FiO2 01/24/19 12:00 82 01/24/19 12:00 98.7 86 18 122/80 (94) 97 01/24/19 09:00 Room Air 01/24/19 08:33 89 146/89 01/24/19 08:00 84 01/24/19 08:00 98.2 106 18 146/89 (108) 98 01/24/19 04:00 98.8 90 18 131/74 (93) 93 01/24/19 04:00 90 01/24/19 00:00 98.6 89 18 105/60 (75) 93 01/24/19 00:00 85 01/23/19 21:00 Room Air 01/23/19 20:47 90 130/81 01/23/19 20:00 96 01/23/19 20:00 97.9 78 18 130/81 (97) 99 01/23/19 16:00 88 01/23/19 16:00 98.1 87 18 127/75 (92) 99 Intake and Output 01/23/19 01/24/19 19:00 07:00 Intake Total 2800 ml 1350 ml Balance 2800 ml 1350 ml Intake Oral 2800 ml 600 ml IV Total 750 ml # Voids 4 5 # Bowel Movements 1 Laboratory Tests Test 01/24/19 06:00 01/24/19 07:51 Urine Opiates Screen Negative (NEGATIVE) Urine Barbiturates Screen Negative (NEGATIVE) Phencyclidine (PCP) Screen Negative (NEGATIVE) Urine Amphetamines Screen Negative (NEGATIVE) Urine Benzodiazepines Screen Negative (NEGATIVE) Urine Cocaine Screen Negative (NEGATIVE) Urine Marijuana (THC) Screen Negative (NEGATIVE) White Blood Count 3.7 K/UL (4.8-10.8) L Red Blood Count 3.29 M/UL (4.20-5.40) L Hemoglobin 11.1 G/DL (12.0-16.0) L Hematocrit 30.4 % (37.0-47.0) L Mean Corpuscular Volume 92 FL (80-99) Mean Corpuscular Hemoglobin 33.7 PG (27.0-31.0) H Mean Corpuscular Hemoglobin Concent 36.6 G/DL (32.0-36.0) H Red Cell Distribution Width 14.5 % (11.6-14.8) Platelet Count 66 K/UL (150-450) L Mean Platelet Volume 8.8 FL (6.5-10.1) Neutrophils (%) (Auto) % (45.0-75.0) Lymphocytes (%) (Auto) % (20.0-45.0) Monocytes (%) (Auto) % (1.0-10.0) Eosinophils (%) (Auto) % (0.0-3.0) Basophils (%) (Auto) % (0.0-2.0) Differential Total Cells Counted 100 Neutrophils % (Manual) 51 % (45-75) Lymphocytes % (Manual) 40 % (20-45) Monocytes % (Manual) 3 % (1-10) Eosinophils % (Manual) 6 % (0-3) H Basophils % (Manual) 0 % (0-2) Band Neutrophils 0 % (0-8) Platelet Estimate Decreased L Platelet Morphology Normal Anisocytosis 1+ Reticulocyte Count 0.9 % (0.0-2.0) Haptoglobin Pending Fibrinogen 304 mg/dL (200-400) Sodium Level 137 MMOL/L (136-145) Potassium Level 3.2 MMOL/L (3.5-5.1) L Chloride Level 102 MMOL/L (98-107) Carbon Dioxide Level 27 MMOL/L (21-32) Anion Gap 8 mmol/L (5-15) Blood Urea Nitrogen 2 mg/dL (7-18) L Creatinine 0.6 MG/DL (0.55-1.30) Estimat Glomerular Filtration Rate > 60 mL/min (>60) Glucose Level 130 MG/DL (74-106) H Hemoglobin A1c 5.9 % (4.3-6.0) Osmolality 286 mOsm/kg (297-317) L Uric Acid 4.8 MG/DL (2.6-7.2) Calcium Level 8.1 MG/DL (8.5-10.1) L Phosphorus Level 1.5 MG/DL (2.5-4.9) L Magnesium Level 1.9 MG/DL (1.8-2.4) Ferritin 1370 NG/ML (8-388) H Total Bilirubin 2.2 MG/DL (0.2-1.0) H Direct Bilirubin 1.2 MG/DL (0.0-0.3) H Gamma Glutamyl Transpeptidase 3184 U/L (5-85) H Aspartate Amino Transf (AST/SGOT) 240 U/L (15-37) H Alanine Aminotransferase (ALT/SGPT) 134 U/L (12-78) H Alkaline Phosphatase 209 U/L (46-116) H Lactate Dehydrogenase 354 U/L (81-234) H Total Creatine Kinase 275 U/L (26-308) Pro-B-Type Natriuretic Peptide 152 pg/mL (0-125) H Total Protein 6.1 G/DL (6.4-8.2) L Albumin 2.9 G/DL (3.4-5.0) L Globulin 3.2 g/dL Albumin/Globulin Ratio 0.9 (1.0-2.7) L Triglycerides Level 486 MG/DL (30-150) H Cholesterol Level 174 MG/DL (< 200) LDL Cholesterol 73 mg/dL (<100) HDL Cholesterol 20 MG/DL (40-60) L Cholesterol/HDL Ratio 8.7 (3.3-4.4) H Vitamin B12 Level 497 PG/ML (193-986) Folate 16.1 NG/ML (8.6-58.9) Thyroid Stimulating Hormone (TSH) 2.934 uiU/mL (0.358-3.740) Hepatitis A IgM Antibody Pending Hepatitis B Surface Antigen Pending Hepatitis B Core IgM Antibody Pending Hepatitis C Antibody Pending HIV (1&2) Antibody Rapid Negative (NEGATIVE) Microbiology Date/Time Source Procedure Growth Status 01/23/19 18:00 Stool Clostridium difficile Toxin Assay - Final Complete Height (Feet): 5 Height (Inches): 3.00 Weight (Pounds): 180 Medications Current Medications Medications (Trade) Dose Ordered Sig/Lul Route PRN Reason Start Time Stop Time Status Last Admin Dose Admin Clonidine HCl (Catapres Tab) 0.1 mg Q4H PRN ORAL bp over 160 syst 01/23/19 12:15 02/22/19 12:14 Dextrose (Dextrose 50%) 25 ml Q30M PRN IV Hypoglycemia 01/23/19 12:45 02/22/19 12:44 Dextrose (Dextrose 50%) 50 ml Q30M PRN IV Hypoglycemia 01/23/19 12:45 02/22/19 12:44 Dextrose/Sodium Chloride 1,000 ml @ 75 mls/hr [id number] IV 01/24/19 09:20 02/23/19 09:19 01/24/19 11:06 Levetiracetam (Keppra) 500 mg Q12HR ORAL 01/23/19 21:00 02/22/19 20:59 01/24/19 08:33 Metoprolol Tartrate (Lopressor) 50 mg Q12HR ORAL 01/24/19 21:00 02/22/19 20:59 Pantoprazole (Protonix) 40 mg EVERY 12 HOURS ORAL 01/23/19 12:15 02/22/19 12:14 01/24/19 08:32 Potassium Phosphate 30 mm/ Sodium Chloride 285 ml @ 47.5 mls/hr ONCE IV 01/24/19 11:00 01/24/19 17:00 01/24/19 11:06 Potassium Chloride (K-Dur) 40 meq DAILY ORAL 01/25/19 09:00 02/22/19 11:59 Thiamine HCl (Vitamin B1) 100 mg DAILY ORAL 01/23/19 12:15 02/22/19 12:14 01/24/19 08:32 Assessment/Plan Assessment/Plan Hematology Consultation DOS: 01/24/19 REArnold MD: Asiya Duong Reason for Hospitalization: Seizure RFC: Anemia, Thrombocytopenia HPI 28 year old female with hx of HTN, ETOH and benzo abuse was transferred from rehab facility s/p seizure. Per EMR, seizure lasted about 2 minutes, tonic- clonic, no urinary or bowel incontinence. Pt recently arrived from [place] and admitted to rehab facility today. States she has never had history of seizures before, denies hx of head trauma, fevers, chills, n/v/c/d, urinary complaints or abdominal complaints. Inthe ED, pt noted to have severe electrolyte abnormalities, EKG unremarkable, CT with no bleed or mass, pts electrolytes were repleted and loaded with keppra. Allergies: PENICILLIN (Allergy, Unknown, 01/22/19) Meds Amlodipine Besylate* (Amlodipine Besylate*), 2.5 MG ORAL DAILY, (Reported) Hydrochlorothiazide* (Hydrochlorothiazide*), 12.5 MG ORAL DAILY, (Reported) Metoprolol Tartrate* (Metoprolol Tartrate*), 25 MG ORAL EVERY 12 HOURS, ( Reported) Advanced Directive on File Past Medical/Surgical History: (1) Hypertension (2) Thrombocythemia (3) Hypomagnesemia (4) Hypokalemia (5) Hyponatremia (6) New onset seizure Review of Systems Constitutional: Reports: no symptoms Eye: Reports: no symptoms ENT: Reports: no symptoms Respiratory: Reports: no symptoms Cardiovascular: Reports: no symptoms Gastrointestinal: Reports: no symptoms Genitourinary: Reports: no symptoms Musculoskeletal: Reports: no symptoms Skin: Reports: no symptoms Psychiatric: Reports: no symptoms Neurological: Reports: no symptoms Endocrine: Reports: no symptoms Hematologic/Lymphatic: Reports: no symptoms PE General Appearance: WD/WN, no apparent distress, alert, lethargic Lines, tubes and drains: peripheral HEENT: normocephalic, atraumatic, anicteric, mucous membranes moist, PERRL Neck: non-tender, normal alignment, supple, normal inspection Respiratory/Chest: chest wall non-tender, lungs clear Cardiovascular/Chest: normal peripheral pulses, normal rate Abdomen: normal bowel sounds, non tender Extremities: normal range of motion Skin Exam: normal pigmentation 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: duplication specialist II-XII grossly normal Musculoskeletal: normal muscle bulk Laboratory Tests Test 01/24/19 06:00 01/24/19 07:51 Urine Opiates Screen Negative (NEGATIVE) Urine Barbiturates Screen Negative (NEGATIVE) Phencyclidine (PCP) Screen Negative (NEGATIVE) Urine Amphetamines Screen Negative (NEGATIVE) Urine Benzodiazepines Screen Negative (NEGATIVE) Urine Cocaine Screen Negative (NEGATIVE) Urine Marijuana (THC) Screen Negative (NEGATIVE) White Blood Count 3.7 K/UL (4.8-10.8) L Red Blood Count 3.29 M/UL (4.20-5.40) L Hemoglobin 11.1 G/DL (12.0-16.0) L Hematocrit 30.4 % (37.0-47.0) L Mean Corpuscular Volume 92 FL (80-99) Mean Corpuscular Hemoglobin 33.7 PG (27.0-31.0) H Mean Corpuscular Hemoglobin Concent 36.6 G/DL (32.0-36.0) H Red Cell Distribution Width 14.5 % (11.6-14.8) Platelet Count 66 K/UL (150-450) L Mean Platelet Volume 8.8 FL (6.5-10.1) Neutrophils (%) (Auto) % (45.0-75.0) Lymphocytes (%) (Auto) % (20.0-45.0) Monocytes (%) (Auto) % (1.0-10.0) Eosinophils (%) (Auto) % (0.0-3.0) Basophils (%) (Auto) % (0.0-2.0) Differential Total Cells Counted 100 Neutrophils % (Manual) 51 % (45-75) Lymphocytes % (Manual) 40 % (20-45) Monocytes % (Manual) 3 % (1-10) Eosinophils % (Manual) 6 % (0-3) H Basophils % (Manual) 0 % (0-2) Band Neutrophils 0 % (0-8) Platelet Estimate Decreased L Platelet Morphology Normal Anisocytosis 1+ Reticulocyte Count 0.9 % (0.0-2.0) Haptoglobin Pending Fibrinogen 304 mg/dL (200-400) Sodium Level 137 MMOL/L (136-145) Potassium Level 3.2 MMOL/L (3.5-5.1) L Chloride Level 102 MMOL/L (98-107) Carbon Dioxide Level 27 MMOL/L (21-32) Anion Gap 8 mmol/L (5-15) Blood Urea Nitrogen 2 mg/dL (7-18) L Creatinine 0.6 MG/DL (0.55-1.30) Estimat Glomerular Filtration Rate > 60 mL/min (>60) Glucose Level 130 MG/DL (74-106) H Hemoglobin A1c 5.9 % (4.3-6.0) Osmolality 286 mOsm/kg (297-317) L Uric Acid 4.8 MG/DL (2.6-7.2) Calcium Level 8.1 MG/DL (8.5-10.1) L Phosphorus Level 1.5 MG/DL (2.5-4.9) L Magnesium Level 1.9 MG/DL (1.8-2.4) Ferritin 1370 NG/ML (8-388) H Total Bilirubin 2.2 MG/DL (0.2-1.0) H Direct Bilirubin 1.2 MG/DL (0.0-0.3) H Gamma Glutamyl Transpeptidase 3184 U/L (5-85) H Aspartate Amino Transf (AST/SGOT) 240 U/L (15-37) H Alanine Aminotransferase (ALT/SGPT) 134 U/L (12-78) H Alkaline Phosphatase 209 U/L (46-116) H Lactate Dehydrogenase 354 U/L (81-234) H Total Creatine Kinase 275 U/L (26-308) Pro-B-Type Natriuretic Peptide 152 pg/mL (0-125) H Total Protein 6.1 G/DL (6.4-8.2) L Albumin 2.9 G/DL (3.4-5.0) L Globulin 3.2 g/dL Albumin/Globulin Ratio 0.9 (1.0-2.7) L Triglycerides Level 486 MG/DL (30-150) H Cholesterol Level 174 MG/DL (< 200) LDL Cholesterol 73 mg/dL (<100) HDL Cholesterol 20 MG/DL (40-60) L Cholesterol/HDL Ratio 8.7 (3.3-4.4) H Vitamin B12 Level 497 PG/ML (193-986) Folate 16.1 NG/ML (8.6-58.9) Thyroid Stimulating Hormone (TSH) 2.934 uiU/mL (0.358-3.740) Hepatitis A IgM Antibody Pending Hepatitis B Surface Antigen Pending Hepatitis B Core IgM Antibody Pending Hepatitis C Antibody Pending HIV (1&2) Antibody Rapid Negative (NEGATIVE) Height (Feet): 5 Height (Inches): 3.00 Weight (Pounds): 180 Medications Current Medications Medications (Trade) Dose Ordered Sig/Lul Route PRN Reason Start Time Stop Time Status Last Admin Dose Admin Clonidine HCl (Catapres Tab) 0.1 mg Q4H PRN ORAL bp over 160 syst 01/23/19 12:15 02/22/19 12:14 Dextrose (Dextrose 50%) 25 ml Q30M PRN IV Hypoglycemia 01/23/19 12:45 02/22/19 12:44 Dextrose (Dextrose 50%) 50 ml Q30M PRN IV Hypoglycemia 01/23/19 12:45 02/22/19 12:44 Dextrose/ Electrolytes 1,000 ml @ 75 mls/hr [id number] IV 01/23/19 13:00 02/22/19 12:59 01/23/19 15:46 Gadobutrol (Gadavist) 7.5 mmol NOW PRN IV RADIOLOGY 01/23/19 11:45 01/23/19 23:59 Levetiracetam (Keppra) 500 mg Q12HR ORAL 01/23/19 21:00 02/22/19 20:59 01/23/19 20:46 Metoprolol Tartrate (Lopressor) 25 mg Q12HR ORAL 01/23/19 21:00 02/22/19 20:59 01/23/19 20:47 Pantoprazole (Protonix) 40 mg EVERY 12 HOURS ORAL 01/23/19 12:15 02/22/19 12:14 01/23/19 20:46 Potassium Chloride (K-Dur) 40 meq THREE TIMES A DAY ORAL 01/23/19 12:00 02/22/19 11:59 01/23/19 18:15 Thiamine HCl (Vitamin B1) 100 mg DAILY ORAL 01/23/19 12:15 02/22/19 12:14 01/23/19 13:11 Assessment/Recs: # Thrombocytopenia - potential causes multifactorial, likely related to drug use , myelosuppresion --> Hep panel ordered and HIV is negative --> US abd to evaluate for cirrhosis and hsm ordered --> Peripheral smear ordered to evaluate for blasts /schistocytes shows none --> abx and other meds have been reviewed --> ok for ppx if plt >50k w/ either heparin or lovenox --> Transfuse if Plt < 20k and fever, or if Plt < 10k without fever # Anemia of chronic disease due to underlying chronic medical issues, multifactorial can be due to drug use --> Anemia workup has been ordered, ferritin is elevated --> No evidence of hemolysis is noted, peripheral smear has been reviewed. --> Hgb goal >7. Transfuse prn. --> Epogen or iron at this time is not particularly indicated --> Medications have been reviewed # New onset seizures likely multifactorial: electrolyte abnormalities/ ETOH w/d / Benzo withdraw --> consider neuro eval # ETOH abuse --> monitor for withdrawal symptoms --> recommend cessation # Benzo abuse --> seizure precautions have been given --> s/p keppra load in ED # Hypokalemia # Hypomagnesemia # Hyponatremia --> repleted with IV # HTN --> Cont metoprolol --> discontinue HCTZ due to electrolyte abnormalities The timing of this note does not necessarily reflect the time of the patient was seen. Greatly appreciate consultation! Evan Barboza MD Jan 24, 2019 15:10
--- NOTE | 2019-01-24 16:30 | NUR ---
NURSE NOTES: Pt was transferred to [facility] per MD request. Pt stable at time of transfer. Belongings list signed and in chart. ALl belongings are with the patient. Report given to BRITT Galvan.
[2019-01-24] MEDS: D5NS 1,000 ML IV SCH (18:11)
--- NOTE | 2019-01-24 19:05 | NUR ---
NURSE NOTES: Received a report from BRITT Galvan. Pt is in stable condition. AAOX4. Able to make needs known. No respiratory distress noted. On room air. No c/o pain/discomfort. IV site is patent and intact. Bed in lowest position. Call light within reach. Will continue to monitor.
--- NOTE | 2019-01-24 19:47 | NUR ---
HAND-OFF: Report given to BRITT Olivo.
[2019-01-24] MEDS: Metoprolol Tartrate 50mg tab ORAL SCH (20:27)
[2019-01-24] MEDS ORDERED: Metoprolol Tartrate 50mg tab ORAL SCH (21:00)
--- NOTE | 2019-01-24 23:47 | General Progress Note ---
Subjective Allergies: Uncoded Allergies: PENICILLIN (Allergy, Unknown, 01/22/19) Objective Last 24 Hour Vital Signs Date Time Temp Pulse Resp B/P (MAP) Pulse Ox O2 Delivery O2 Flow Rate FiO2 01/24/19 23:39 99.0 76 17 129/93 (105) 97 01/24/19 21:00 Room Air 01/24/19 20:27 88 130/90 01/24/19 20:00 97.5 88 18 130/90 (103) 99 01/24/19 16:00 98.5 102 16 127/82 (97) 98 01/24/19 12:00 82 01/24/19 12:00 98.7 86 18 122/80 (94) 97 01/24/19 09:00 Room Air 01/24/19 08:33 89 146/89 01/24/19 08:00 84 01/24/19 08:00 98.2 106 18 146/89 (108) 98 01/24/19 04:00 98.8 90 18 131/74 (93) 93 01/24/19 04:00 90 01/24/19 00:00 98.6 89 18 105/60 (75) 93 01/24/19 00:00 85 Intake and Output 01/23/19 01/24/19 19:00 07:00 Intake Total 2800 ml 1350 ml Balance 2800 ml 1350 ml Intake Oral 2800 ml 600 ml IV Total 750 ml # Voids 4 5 # Bowel Movements 1 Laboratory Tests 01/24/19 06:00: Urine Opiates Screen Negative, Urine Barbiturates Screen Negative, Phencyclidine (PCP) Screen Negative, Urine Amphetamines Screen Negative, Urine Benzodiazepines Screen Negative, Urine Cocaine Screen Negative, Urine Marijuana (THC) Screen Negative 01/24/19 07:51: White Blood Count 3.7L, Red Blood Count 3.29L, Hemoglobin 11.1L, Hematocrit 30.4L, Mean Corpuscular Volume 92, Mean Corpuscular Hemoglobin 33.7H, Mean Corpuscular Hemoglobin Concent 36.6H, Red Cell Distribution Width 14.5, Platelet Count 66L, Mean Platelet Volume 8.8, Neutrophils (%) (Auto) , Lymphocytes (%) (Auto) , Monocytes (%) (Auto) , Eosinophils (%) (Auto) , Basophils (%) (Auto) , Differential Total Cells Counted 100, Neutrophils % ( Manual) 51, Lymphocytes % (Manual) 40, Monocytes % (Manual) 3, Eosinophils % ( Manual) 6H, Basophils % (Manual) 0, Band Neutrophils 0, Platelet Estimate DecreasedL, Platelet Morphology Normal, Anisocytosis 1+, Reticulocyte Count 0.9 , Haptoglobin [Pending], Fibrinogen 304, Sodium Level 137, Potassium Level 3.2L , Chloride Level 102, Carbon Dioxide Level 27, Anion Gap 8, Blood Urea Nitrogen 2L, Creatinine 0.6, Estimat Glomerular Filtration Rate > 60, Glucose Level 130H , Hemoglobin A1c 5.9, Osmolality 286L, Uric Acid 4.8, Calcium Level 8.1L, Phosphorus Level 1.5L, Magnesium Level 1.9, Ferritin 1370H, Total Bilirubin 2.2H , Direct Bilirubin 1.2H, Gamma Glutamyl Transpeptidase 3184H, Aspartate Amino Transf (AST/SGOT) 240H, Alanine Aminotransferase (ALT/SGPT) 134H, Alkaline Phosphatase 209H, Lactate Dehydrogenase 354H, Total Creatine Kinase 275, Pro-B- Type Natriuretic Peptide 152H, Total Protein 6.1L, Albumin 2.9L, Globulin 3.2, Albumin/Globulin Ratio 0.9L, Triglycerides Level 486H, Cholesterol Level 174, LDL Cholesterol 73, HDL Cholesterol 20L, Cholesterol/HDL Ratio 8.7H, Vitamin B12 Level 497, Folate 16.1, Thyroid Stimulating Hormone (TSH) 2.934, Hepatitis A IgM Antibody [Pending], Hepatitis B Surface Antigen [Pending], Hepatitis B Core IgM Antibody [Pending], Hepatitis C Antibody [Pending], HIV (1&2) Antibody Rapid Negative Height (Feet): 5 Height (Inches): 3.00 Weight (Pounds): 180 Blaine Figueroa MD Jan 24, 2019 23:47
[2019-01-25 04:00] VITALS: BP 122/66
[2019-01-25 07:17] LABS: BASOPHILS % (AUTO) 1.2 % (0.0-2.0); EOSINOPHILS % (AUTO) 5.5 % (0.0-3.0); HEMATOCRIT 31.8 % (37.0-47.0); HEMOGLOBIN 11.6 G/DL (12.0-16.0); LYMPHOCYTES % (AUTO) 36.6 % (20.0-45.0); MEAN CORPUSCULAR VOLUME 95 FL (80-99); MONOCYTES % (AUTO) 11.5 % (1.0-10.0); NEUTROPHILS % (AUTO) 45.3 % (45.0-75.0); PLATELET COUNT 110 K/UL (150-450); RED BLOOD COUNT 3.36 M/UL (4.20-5.40); WHITE BLOOD COUNT 4.1 K/UL (4.8-10.8)
[2019-01-25] MEDS: D5NS 1,000 ML IV SCH ×2 (07:20→09:07)
[2019-01-25 07:45] LABS: ALANINE AMINOTRANSFERASE 116 U/L (12-78); ALBUMIN/GLOBULIN RATIO 0.8 (1.0-2.7); ALKALINE PHOSPHATASE 200 U/L (46-116); ANION GAP 10 mmol/L (5-15); ASPARTATE AMINO TRANSFERASE 140 U/L (15-37); BILIRUBIN,TOTAL 1.3 MG/DL (0.2-1.0); BLOOD UREA NITROGEN 3 mg/dL (7-18); CALCIUM 8.7 MG/DL (8.5-10.1); CARBON DIOXIDE 24 MMOL/L (21-32); CHLORIDE 102 MMOL/L (98-107); CREATININE 0.6 MG/DL (0.55-1.30); PHOSPHORUS 3.1 MG/DL (2.5-4.9); POTASSIUM 3.4 MMOL/L (3.5-5.1); SODIUM 136 MMOL/L (136-145)
[2019-01-25 07:47] LABS: BILIRUBIN,DIRECT 0.6 MG/DL (0.0-0.3)
--- NOTE | 2019-01-25 07:47 | NUR ---
HAND-OFF: Report given to Mariela Garcia RN.
[2019-01-25 08:00] VITALS: BP 138/88
--- NOTE | 2019-01-25 08:05 | NUR ---
NURSE NOTES: Patient received, sleeping in bed. Breathing unlabored on room air. No signs of respiratory distress or pain observed. IV site patent and intact, fluids running. Bed locked in low position, siderails padded. Call light placed within reach, will continue to monitor.
[2019-01-25] MEDS: Thiamine 100mg tab ORAL SCH (08:59)
[2019-01-25] MEDS: Metoprolol Tartrate 50mg tab ORAL SCH ×2 (08:59→20:59)
--- NOTE | 2019-01-25 11:36 | Nephrology Progress Note ---
Assessment/Plan Problem List: (1) Hypomagnesemia (2) Hypokalemia (3) Hyponatremia (4) Hypertension (5) New onset seizure (6) Alcoholic liver disease Assessment Sz disorders Low Mag Low K Low NA HTN Fatty / Alcoholic liver Plan Mag IV BP med adjustment DC IV fluids All meds PO Monitor lytes DC planning? Subjective ROS Limited/Unobtainable: No Objective Objective Last 24 Hour Vital Signs Date Time Temp Pulse Resp B/P (MAP) Pulse Ox O2 Delivery O2 Flow Rate FiO2 01/25/19 09:00 Room Air 01/25/19 08:59 78 122/66 01/25/19 08:00 98.1 90 18 138/88 (105) 99 01/25/19 04:00 98.9 78 18 122/66 (84) 97 01/24/19 23:39 99.0 76 17 129/93 (105) 97 01/24/19 21:00 Room Air 01/24/19 20:27 88 130/90 01/24/19 20:00 97.5 88 18 130/90 (103) 99 01/24/19 16:00 98.5 102 16 127/82 (97) 98 01/24/19 12:00 82 01/24/19 12:00 98.7 86 18 122/80 (94) 97 Intake and Output 01/24/19 01/25/19 18:59 06:59 Intake Total 315 ml 1020 ml Balance 315 ml 1020 ml Intake Oral 240 ml 120 ml IV Total 75 ml 900 ml # Voids 3 3 Laboratory Tests 01/25/19 06:40: White Blood Count 4.1L, Red Blood Count 3.36L, Hemoglobin 11.6L, Hematocrit 31.8L, Mean Corpuscular Volume 95, Mean Corpuscular Hemoglobin 34.4H, Mean Corpuscular Hemoglobin Concent 36.3H, Red Cell Distribution Width 15.0H, Platelet Count 110#L, Mean Platelet Volume 6.3L, Neutrophils (%) (Auto) 45.3, Lymphocytes (%) (Auto) 36.6, Monocytes (%) (Auto) 11.5H, Eosinophils (%) (Auto) 5.5H, Basophils (%) (Auto) 1.2, Sodium Level 136, Potassium Level 3.4L, Chloride Level 102, Carbon Dioxide Level 24, Anion Gap 10, Blood Urea Nitrogen 3L, Creatinine 0.6, Estimat Glomerular Filtration Rate > 60, Glucose Level 109H , Uric Acid 3.9, Calcium Level 8.7, Phosphorus Level 3.1, Magnesium Level 1.5L, Total Bilirubin 1.3H, Direct Bilirubin 0.6H, Gamma Glutamyl Transpeptidase 2333H , Aspartate Amino Transf (AST/SGOT) 140H, Alanine Aminotransferase (ALT/SGPT) 116H, Alkaline Phosphatase 200H, Total Protein 6.6, Albumin 3.0L, Globulin 3.6, Albumin/Globulin Ratio 0.8L Height (Feet): 5 Height (Inches): 3.00 Weight (Pounds): 180 General Appearance: no apparent distress Cardiovascular: normal rate Respiratory/Chest: lungs clear Abdomen: soft Mukul Mccracken MD Jan 25, 2019 11:36
[2019-01-25 12:00] VITALS: BP 129/79
--- NOTE | 2019-01-25 12:31 | General Progress Note ---
Assessment/Plan Problem List: (1) Alcohol dependence ICD Codes: F10.20 - Alcohol dependence, uncomplicated SNOMED: 11244244 (2) Anxiety disorder ICD Codes: F41.9 - Anxiety disorder, unspecified SNOMED: 944399386 (3) Alcohol withdrawal ICD Codes: F10.239 - Alcohol dependence with withdrawal, unspecified SNOMED: 898884411 Status: unchanged Assessment/Plan remeron 15mg po qhs prozac 20mg po qam valium 10mg q4 hr prn Subjective Neurologic/Psychiatric: Reports: anxiety, depressed, emotional problems Allergies: Uncoded Allergies: PENICILLIN (Allergy, Unknown, 01/22/19) Objective Last 24 Hour Vital Signs Date Time Temp Pulse Resp B/P (MAP) Pulse Ox O2 Delivery O2 Flow Rate FiO2 01/25/19 09:00 Room Air 01/25/19 08:59 78 122/66 01/25/19 08:00 98.1 90 18 138/88 (105) 99 01/25/19 04:00 98.9 78 18 122/66 (84) 97 01/24/19 23:39 99.0 76 17 129/93 (105) 97 01/24/19 21:00 Room Air 01/24/19 20:27 88 130/90 01/24/19 20:00 97.5 88 18 130/90 (103) 99 01/24/19 16:00 98.5 102 16 127/82 (97) 98 Intake and Output 01/24/19 01/25/19 19:00 07:00 Intake Total 240 ml 1020 ml Balance 240 ml 1020 ml Intake Oral 240 ml 120 ml IV Total 900 ml # Voids 3 3 Laboratory Tests 01/25/19 06:40: White Blood Count 4.1L, Red Blood Count 3.36L, Hemoglobin 11.6L, Hematocrit 31.8L, Mean Corpuscular Volume 95, Mean Corpuscular Hemoglobin 34.4H, Mean Corpuscular Hemoglobin Concent 36.3H, Red Cell Distribution Width 15.0H, Platelet Count 110#L, Mean Platelet Volume 6.3L, Neutrophils (%) (Auto) 45.3, Lymphocytes (%) (Auto) 36.6, Monocytes (%) (Auto) 11.5H, Eosinophils (%) (Auto) 5.5H, Basophils (%) (Auto) 1.2, Sodium Level 136, Potassium Level 3.4L, Chloride Level 102, Carbon Dioxide Level 24, Anion Gap 10, Blood Urea Nitrogen 3L, Creatinine 0.6, Estimat Glomerular Filtration Rate > 60, Glucose Level 109H , Uric Acid 3.9, Calcium Level 8.7, Phosphorus Level 3.1, Magnesium Level 1.5L, Total Bilirubin 1.3H, Direct Bilirubin 0.6H, Gamma Glutamyl Transpeptidase 2333H , Aspartate Amino Transf (AST/SGOT) 140H, Alanine Aminotransferase (ALT/SGPT) 116H, Alkaline Phosphatase 200H, Total Protein 6.6, Albumin 3.0L, Globulin 3.6, Albumin/Globulin Ratio 0.8L Height (Feet): 5 Height (Inches): 3.00 Weight (Pounds): 180 General Appearance: WD/WN, alert, moderate distress, agitated Blaine Figueroa MD Jan 25, 2019 12:31
--- NOTE | 2019-01-25 14:40 | NUR ---
MRI BRAIN W/WO COMPLETED.
--- NOTE | 2019-01-25 16:10 | Diagnostic Imaging Report ---
Indication: New onset seizures, hand and arm numbness and tingling, tremors, dizziness Technique: sagittal T1 fast spin echo, axial T1 and T2 FLAIR PROPELLER, axial T2 FS PROPELLER, T2* GRE, axial diffusion weighted images,, coronal T2 FLAIR PROPELLER, coronal FSPGR WHITTAKER, post contrast axial and coronal T1 FLAIR PROPELLER images. ADC and exponential ADC maps generated Comparison: Brain CT 01/23/2019 Findings: . No abnormal areas of restricted diffusion to suggest acute infarction. No acute hemorrhage or edema. No mass effect nor midline shift. No abnormal contrast enhancement. There is age-related enlargement of the ventricles and extra axial CSF spaces. Bilateral symmetric appearing hippocampi. Visualized orbits and sinuses are unremarkable. The vascular flow voids are preserved.. Impression: Age-related volume loss Negative for acute intrarenal bleed, mass effect, infarct, or contrast enhancing lesion. No findings to explain stated clinical history of seizure disorder
[2019-01-25] MEDS: LORazepam 0.5mg tab ORAL PRN (16:23)
[2019-01-25 16:30] VITALS: BP 130/80
--- NOTE | 2019-01-25 17:16 | Electroencephalogram ---
DATE OF PROCEDURE: 01/23/2019 PROCEDURE PERFORMED: EEG. READING PHYSICIAN: Manuel Lara M.D. REQUESTING PHYSICIANS: Marlen Braden M.D. & Mauro Villa M.D. HISTORY: This EEG was performed on a 28-year-old lady with a history of multiple medical problems including hypertension, alcohol and benzodiazepine abuse, who was hospitalized for a generalized tonic-clonic seizure. The purpose of this EEG was to evaluate the patient for the degree and type of cerebral dysfunction and to exclude ongoing ictal or interictal phenomena. TECHNICAL NOTE: This EEG was performed on a [employer] with electrodes placed on the scalp according to the International 10-20 system. [id number] and [id number] montages were used. The EEG was technically satisfactory and was performed in the awake and drowsy states. OBSERVATIONS: In the best awake state, the background activity consisted of 8.5-9 Hz posteriorly predominant, well-developed, alpha waveforms, which attenuated on eye opening. Drowsiness was characterized by dissolution of the alpha rhythm and the appearance of slower frequencies in the 5-6 Hz theta range. Throughout the tracing, a moderate amount of superimposed 24-26 Hz beta activity was seen. Parts of the EEG were marred by EMG, movement, and electrode artifact. No focal abnormalities or epileptiform discharges were seen. IMPRESSION: Normal awake and drowsy EEG. COMMENT: Normal EEG, does not rule out a seizure disorder. Manuel Lara M.D., M.S.P.H. DR: EDU JOB#: [id number]
--- NOTE | 2019-01-25 18:00 | General Progress Note ---
Assessment/Plan Assessment/Plan Assessment/Recs: # Thrombocytopenia - potential causes multifactorial, likely related to drug use , myelosuppresion from street drugs --> Hep panel ordered and HIV is negative --> US abd to evaluate for cirrhosis and hsm reviewed --> Peripheral smear ordered to evaluate for blasts /schistocytes shows none --> abx and other meds have been reviewed --> ok for ppx if plt >50k w/ either heparin or lovenox --> Transfuse if Plt < 20k and fever, or if Plt < 10k without fever --> trend plts 53k-->66k-->110k # Anemia of chronic disease due to underlying chronic medical issues, multifactorial can be due to drug use --> Anemia workup has been reviewed, ferritin 1370 --> No evidence of hemolysis is noted, peripheral smear has been reviewed. --> Hgb goal >7. Transfuse prn. --> Epogen or iron at this time is not particularly indicated --> Medications have been reviewed # New onset seizures likely multifactorial: electrolyte abnormalities/ ETOH w/d / Benzo withdraw --> consider neuro eval # ETOH abuse --> monitor for withdrawal symptoms --> recommend cessation # Benzo abuse --> seizure precautions have been given --> s/p keppra load in ED # Hypokalemia # Hypomagnesemia # Hyponatremia --> repleted with IV # HTN --> Cont metoprolol --> discontinue HCTZ due to electrolyte abnormalities The timing of this note does not necessarily reflect the time of the patient was seen. Greatly appreciate consultation! Subjective Constitutional: Denies: no symptoms, chills, diaphoresis, fever, malaise, weakness, other HEENT: Denies: no symptoms, eye pain, blurred vision, tearing, double vision, ear pain, ear discharge, nose pain, nose congestion, throat pain, throat swelling, mouth pain, mouth swelling, other Cardiovascular: Denies: no symptoms, chest pain, edema, irregular heart rate, lightheadedness, palpitations, syncope, other Respiratory: Denies: no symptoms, cough, orthopnea, shortness of breath, SOB with excertion, SOB at rest, sputum, stridor, wheezing, other Gastrointestinal/Abdominal: Denies: no symptoms, abdomen distended, abdominal pain, black stools, tarry stools, blood in stool, constipated, diarrhea, difficulty swallowing, nausea, poor appetite, poor fluid intake, rectal bleeding , vomiting, other Genitourinary: Denies: no symptoms, burning, discharge, frequency, flank pain, hematuria, incontinence, pain, urgency, other Neurologic/Psychiatric: Denies: no symptoms, anxiety, depressed, emotional problems, headache, numbness, paresthesia, pre-existing deficit, seizure, tingling, tremors, weakness, other Endocrine: Denies: no symptoms, excessive sweating, flushing, intolerance to cold, intolerance to heat, increased hunger, increased thirst, increased urine, unexplained weight gain, unexplained weight loss, other Hematologic/Lymphatic: Denies: no symptoms, anemia, easy bleeding, easy bruising, other Allergies: Uncoded Allergies: PENICILLIN (Allergy, Unknown, 01/22/19) Subjective 01/25: seen by bedside, awake, comfortable, no events, ferritin 1370 Objective Last 24 Hour Vital Signs Date Time Temp Pulse Resp B/P (MAP) Pulse Ox O2 Delivery O2 Flow Rate FiO2 01/25/19 16:30 98.2 77 18 130/80 (97) 99 01/25/19 12:00 97.9 88 18 129/79 (96) 98 01/25/19 09:00 Room Air 01/25/19 08:59 78 122/66 01/25/19 08:00 98.1 90 18 138/88 (105) 99 01/25/19 04:00 98.9 78 18 122/66 (84) 97 01/24/19 23:39 99.0 76 17 129/93 (105) 97 01/24/19 21:00 Room Air 01/24/19 20:27 88 130/90 01/24/19 20:00 97.5 88 18 130/90 (103) 99 Intake and Output 01/24/19 01/25/19 19:00 07:00 Intake Total 240 ml 1020 ml Balance 240 ml 1020 ml Intake Oral 240 ml 120 ml IV Total 900 ml # Voids 3 3 Laboratory Tests 01/25/19 06:40: White Blood Count 4.1L, Red Blood Count 3.36L, Hemoglobin 11.6L, Hematocrit 31.8L, Mean Corpuscular Volume 95, Mean Corpuscular Hemoglobin 34.4H, Mean Corpuscular Hemoglobin Concent 36.3H, Red Cell Distribution Width 15.0H, Platelet Count 110#L, Mean Platelet Volume 6.3L, Neutrophils (%) (Auto) 45.3, Lymphocytes (%) (Auto) 36.6, Monocytes (%) (Auto) 11.5H, Eosinophils (%) (Auto) 5.5H, Basophils (%) (Auto) 1.2, Sodium Level 136, Potassium Level 3.4L, Chloride Level 102, Carbon Dioxide Level 24, Anion Gap 10, Blood Urea Nitrogen 3L, Creatinine 0.6, Estimat Glomerular Filtration Rate > 60, Glucose Level 109H , Uric Acid 3.9, Calcium Level 8.7, Phosphorus Level 3.1, Magnesium Level 1.5L, Total Bilirubin 1.3H, Direct Bilirubin 0.6H, Gamma Glutamyl Transpeptidase 2333H , Aspartate Amino Transf (AST/SGOT) 140H, Alanine Aminotransferase (ALT/SGPT) 116H, Alkaline Phosphatase 200H, Total Protein 6.6, Albumin 3.0L, Globulin 3.6, Albumin/Globulin Ratio 0.8L Height (Feet): 5 Height (Inches): 3.00 Weight (Pounds): 180 Objective PE General Appearance: WD/WN, no apparent distress, alert, lethargic Lines, tubes and drains: peripheral HEENT: normocephalic, atraumatic, anicteric, mucous membranes moist, Neck: non-tender, normal alignment, supple, normal inspection Respiratory/Chest: chest wall non-tender, lungs clear Cardiovascular/Chest: normal peripheral pulses, normal rate Abdomen: normal bowel sounds, non tender Extremities: normal range of motion Skin Exam: normal pigmentation 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
--- NOTE | 2019-01-25 18:37 | NUR ---
CASE MANAGEMENT: REVIEW SI: SEIZURE . HYPOKALEMIA T 97.9 HR 88 RR 18 BP 129/79 SAT 98% ROOM AIR WBC 4.1 K 3.4 GGT 2333 AST 140 ALT 116 ALK PHOS 200 IS: KEPPRA PO Q12HR K-DUR PO BID VIT B1 PO QD FOLIC ACID PO QD MED/SURG STATUS DCP: PATIENT IS FROM [facility]
[2019-01-25] MEDS: Loperamide 2mg cap ORAL PRN (18:44)
--- NOTE | 2019-01-25 19:00 | NUR ---
NURSE NOTES: Received a report from Mariela Garcia RN. Pt is in stable condition. AAOX4. Able to make needs known. No respiratory distress noted. On room air. No c/o pain/discomfort. IV site is patent and intact. Bed in lowest position. Call light within reach. Will continue to monitor.
--- NOTE | 2019-01-25 19:12 | NUR ---
HAND-OFF: Report given to Pallavi DE LA TORRE.
[2019-01-25 20:00] VITALS: BP 115/72
--- NOTE | 2019-01-25 23:17 | General Progress Note ---
Assessment/Plan Assessment/Plan Assessment 28 year old female with PMH of htn, etoh and benzo abuse presented admitted for new onset seizures Plan #New onset seizures likely multifactorial: electrolyte abnormalities/ ETOH w/d/ Benzo withdraw #ETOH abuse #Benzo abuse -seizure precautions -s/p keppra load in ED -CT head unremarkable -Neurology consult appreciated -Will cont keppra for now -pending MRI brain -monitor for withdraw - no signs of withdraw on examination #Hypokalemia #Hypomagnesemia #Hyponatremia -repleted with IV -CTM -Appreciate nephrology consult -Improved- cont PRN repletion -hold HCTZ #HTN -BP improved -Cont metoprolol increased to 50mg BID -discontinue HCTZ due to electrolyte abnormalities -can add norvasc if needed #THrombocytopenia - improving #Transaminitis likely 2/2 ETOH #ETOH fatty liver -likley 2/2 etoh abuse, liver injury -CTM -hold heparin products -Hematology consulted -Avoid hepatic toxic drugs DC in AM Code status with discussion: Full I spent 40 min on this patients care, and 32 min was dedicated to counseling and /or care coordination - Subjective Allergies: Uncoded Allergies: PENICILLIN (Allergy, Unknown, 01/22/19) All Systems: reviewed and negative except above Subjective No acute overnight events, pt states she feels better, has no complaints Objective Last 24 Hour Vital Signs Date Time Temp Pulse Resp B/P (MAP) Pulse Ox O2 Delivery O2 Flow Rate FiO2 01/25/19 21:00 Room Air 01/25/19 20:59 74 115/72 01/25/19 20:00 98.5 74 17 115/72 (86) 99 01/25/19 16:30 98.2 77 18 130/80 (97) 99 01/25/19 12:00 97.9 88 18 129/79 (96) 98 01/25/19 09:00 Room Air 01/25/19 08:59 78 122/66 01/25/19 08:00 98.1 90 18 138/88 (105) 99 01/25/19 04:00 98.9 78 18 122/66 (84) 97 01/24/19 23:39 99.0 76 17 129/93 (105) 97 Intake and Output 01/24/19 01/25/19 19:00 07:00 Intake Total 240 ml 1020 ml Balance 240 ml 1020 ml Intake Oral 240 ml 120 ml IV Total 900 ml # Voids 3 3 Laboratory Tests 01/25/19 06:40: White Blood Count 4.1L, Red Blood Count 3.36L, Hemoglobin 11.6L, Hematocrit 31.8L, Mean Corpuscular Volume 95, Mean Corpuscular Hemoglobin 34.4H, Mean Corpuscular Hemoglobin Concent 36.3H, Red Cell Distribution Width 15.0H, Platelet Count 110#L, Mean Platelet Volume 6.3L, Neutrophils (%) (Auto) 45.3, Lymphocytes (%) (Auto) 36.6, Monocytes (%) (Auto) 11.5H, Eosinophils (%) (Auto) 5.5H, Basophils (%) (Auto) 1.2, Sodium Level 136, Potassium Level 3.4L, Chloride Level 102, Carbon Dioxide Level 24, Anion Gap 10, Blood Urea Nitrogen 3L, Creatinine 0.6, Estimat Glomerular Filtration Rate > 60, Glucose Level 109H , Uric Acid 3.9, Calcium Level 8.7, Phosphorus Level 3.1, Magnesium Level 1.5L, Total Bilirubin 1.3H, Direct Bilirubin 0.6H, Gamma Glutamyl Transpeptidase 2333H , Aspartate Amino Transf (AST/SGOT) 140H, Alanine Aminotransferase (ALT/SGPT) 116H, Alkaline Phosphatase 200H, Total Protein 6.6, Albumin 3.0L, Globulin 3.6, Albumin/Globulin Ratio 0.8L Height (Feet): 5 Height (Inches): 3.00 Weight (Pounds): 180 Objective General Appearance: WD/WN, no apparent distress, alert, lethargic Lines, tubes and drains: peripheral HEENT: normocephalic, atraumatic, anicteric, mucous membranes moist, PERRL Neck: non-tender, normal alignment, supple, normal inspection Respiratory/Chest: chest wall non-tender, lungs clear, normal breath sounds, no respiratory distress, no accessory muscle use Cardiovascular/Chest: normal peripheral pulses, normal rate, regular rhythm, regularly irregular Abdomen: normal bowel sounds, non tender, soft, no organomegaly, no mass Extremities: normal range of motion Skin Exam: normal pigmentation 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
[2019-01-26] VITALS: BP 126/79
[2019-01-26] MEDS: Loperamide 2mg cap ORAL PRN ×3 (03:48→15:54)
[2019-01-26 04:00] VITALS: BP 115/71
[2019-01-26 06:33] LABS: BASOPHILS % (AUTO) 1.2 % (0.0-2.0); EOSINOPHILS % (AUTO) 4.6 % (0.0-3.0); HEMATOCRIT 35.1 % (37.0-47.0); HEMOGLOBIN 12.1 G/DL (12.0-16.0); LYMPHOCYTES % (AUTO) 37.6 % (20.0-45.0); MEAN CORPUSCULAR VOLUME 98 FL (80-99); MONOCYTES % (AUTO) 14.8 % (1.0-10.0); NEUTROPHILS % (AUTO) 41.8 % (45.0-75.0); PLATELET COUNT 175 K/UL (150-450); RED BLOOD COUNT 3.57 M/UL (4.20-5.40); RED CELL DISTRIBUTION WIDTH 16.3 % (11.6-14.8); WHITE BLOOD COUNT 5.3 K/UL (4.8-10.8)
[2019-01-26 06:57] LABS: ALANINE AMINOTRANSFERASE 117 U/L (12-78); ALBUMIN 3.1 G/DL (3.4-5.0); ALBUMIN/GLOBULIN RATIO 0.9 (1.0-2.7); ALKALINE PHOSPHATASE 192 U/L (46-116); ANION GAP 10 mmol/L (5-15); ASPARTATE AMINO TRANSFERASE 121 U/L (15-37); BILIRUBIN,TOTAL 1.1 MG/DL (0.2-1.0); BLOOD UREA NITROGEN 7 mg/dL (7-18); CALCIUM 9.4 MG/DL (8.5-10.1); CARBON DIOXIDE 23 MMOL/L (21-32); CHLORIDE 104 MMOL/L (98-107); CREATININE 0.6 MG/DL (0.55-1.30); GAMMA GLUTAMYL TRANSPEPTIDASE 2880 U/L (5-85); PHOSPHORUS 4.4 MG/DL (2.5-4.9); POTASSIUM 3.6 MMOL/L (3.5-5.1); SODIUM 137 MMOL/L (136-145)
[2019-01-26 06:58] LABS: BILIRUBIN,DIRECT 0.5 MG/DL (0.0-0.3)
--- NOTE | 2019-01-26 07:15 | NUR ---
HAND-OFF: Report given to Mariela Garcia RN.
--- NOTE | 2019-01-26 07:36 | NUR ---
NURSE NOTES: Patient received in stable condition, resting in bed at this time. Breathing unlabored on room air. No signs of pain observed. IV site on left arm patent and intact. Side rails padded. Bed locked in lowest position. Call light placed within reach, will continue to monitor.
[2019-01-26 08:00] VITALS: BP 131/84
[2019-01-26] MEDS: Metoprolol Tartrate 50mg tab ORAL SCH (08:18)
[2019-01-26] MEDS: Thiamine 100mg tab ORAL SCH (08:18)
[2019-01-26] MEDS: LORazepam 0.5mg tab ORAL PRN ×2 (08:19→15:54)
--- NOTE | 2019-01-26 09:49 | NUR ---
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 HYPOKALEMIA VS: BP115/72, P 63, T 97.6, RR 15, SpO2 98 RBC 3.57, Magnesium 1.6, Total Bilirubin 1.1, Albumin 3.1 Brain MRI Impression: Age-related volume loss IS:Protonix 40mg Lopressor 50mg Keppra 250mg Prozac 20mg K-Dur 40meq Loperamide HCi 2mg Mirtazapine 15mg MED/SURG STATUS
--- NOTE | 2019-01-26 10:42 | General Progress Note ---
Assessment/Plan Problem List: (1) Alcohol dependence ICD Codes: F10.20 - Alcohol dependence, uncomplicated SNOMED: 39081315 (2) Anxiety disorder ICD Codes: F41.9 - Anxiety disorder, unspecified SNOMED: 565441949 (3) Alcohol withdrawal ICD Codes: F10.239 - Alcohol dependence with withdrawal, unspecified SNOMED: 152666778 Status: stable Assessment/Plan remeron 15mg po qhs prozac 20mg po qam valium 10mg q4 hr prn Subjective Neurologic/Psychiatric: Reports: anxiety, depressed, emotional problems Allergies: Uncoded Allergies: PENICILLIN (Allergy, Unknown, 01/22/19) Subjective the pt is doing well the pt is less anxious Objective Last 24 Hour Vital Signs Date Time Temp Pulse Resp B/P (MAP) Pulse Ox O2 Delivery O2 Flow Rate FiO2 01/26/19 08:18 63 115/71 01/26/19 08:00 98.7 86 18 131/84 (100) 98 01/26/19 04:00 97.6 63 15 115/71 (86) 98 01/26/19 00:00 98.6 69 17 126/79 (95) 99 01/25/19 21:00 Room Air 01/25/19 20:59 74 115/72 01/25/19 20:00 98.5 74 17 115/72 (86) 99 01/25/19 16:30 98.2 77 18 130/80 (97) 99 01/25/19 12:00 97.9 88 18 129/79 (96) 98 Intake and Output 01/25/19 01/26/19 18:59 06:59 Intake Total 360 ml 120 ml Balance 360 ml 120 ml Intake Oral 360 ml 120 ml # Voids 4 3 # Bowel Movements 2 Laboratory Tests 01/26/19 04:50: White Blood Count 5.3, Red Blood Count 3.57L, Hemoglobin 12.1, Hematocrit 35.1L , Mean Corpuscular Volume 98, Mean Corpuscular Hemoglobin 33.9H, Mean Corpuscular Hemoglobin Concent 34.4, Red Cell Distribution Width 16.3H, Platelet Count 175#, Mean Platelet Volume 6.1L, Neutrophils (%) (Auto) 41.8L, Lymphocytes (%) (Auto) 37.6, Monocytes (%) (Auto) 14.8H, Eosinophils (%) (Auto) 4.6H, Basophils (%) (Auto) 1.2, Sodium Level 137, Potassium Level 3.6, Chloride Level 104, Carbon Dioxide Level 23, Anion Gap 10, Blood Urea Nitrogen 7, Creatinine 0.6, Estimat Glomerular Filtration Rate > 60, Glucose Level 95, Calcium Level 9.4, Phosphorus Level 4.4, Magnesium Level 1.6L, Total Bilirubin 1.1H, Direct Bilirubin 0.5H, Gamma Glutamyl Transpeptidase 2880H, Aspartate Amino Transf (AST/SGOT) 121H, Alanine Aminotransferase (ALT/SGPT) 117H, Alkaline Phosphatase 192H, Total Protein 6.7, Albumin 3.1L, Globulin 3.6, Albumin/Globulin Ratio 0.9L Height (Feet): 5 Height (Inches): 3.00 Weight (Pounds): 180 General Appearance: WD/WN, alert, moderate distress, overweight Blaine Figueroa MD Jan 26, 2019 10:42
--- NOTE | 2019-01-26 11:10 | NUR ---
Social Service Note SW met with patient to obtain facility contact information in anticipation of impending dc plan. Patient is alert, oriented and verbally responsive. Admission director Tirso [phone] will coordinator transportation back to facility. Tirso will discuss with medical assistant of program to determine if medical records need to faxed or if patient can bring records to facility. Patient may return at anytime. Contact Tirso and he will arrange for pickle pumper. Will follow up. Addendum: 01/26/19 at 1123 by FRANCINE FAYE MSW Patient to return to facility with a copy of H&P, Labs and med recon. [facility] [address] [facility] [address] (to arrange transportation back to facility)
--- NOTE | 2019-01-26 11:18 | NUR ---
*-* INSURANCE *-* ALL CLINICALS, REVIEWS AND INTERQUAL HAVE BEEN FAXED TO: [employer] NO FASHION EDITOR ASSIGNED AT THIS TIME PLEASE FAX THE REVIEW & CLINICAL TO [employer]: [phone]....
[2019-01-26 12:00] VITALS: BP 106/70
--- NOTE | 2019-01-26 12:19 | Nephrology Progress Note ---
Assessment/Plan Problem List: (1) Hypomagnesemia (2) Hypokalemia (3) Hyponatremia (4) Hypertension (5) New onset seizure (6) Alcoholic liver disease Assessment Sz disorders Low Mag Low K Low NA HTN Fatty / Alcoholic liver Plan Mag IV BP med adjustment DC IV fluids All meds PO Monitor lytes DC planning? Subjective ROS Limited/Unobtainable: No Constitutional: Reports: malaise Objective Objective Last 24 Hour Vital Signs Date Time Temp Pulse Resp B/P (MAP) Pulse Ox O2 Delivery O2 Flow Rate FiO2 01/26/19 09:00 Room Air 01/26/19 08:18 63 115/71 01/26/19 08:00 98.7 86 18 131/84 (100) 98 01/26/19 04:00 97.6 63 15 115/71 (86) 98 01/26/19 00:00 98.6 69 17 126/79 (95) 99 01/25/19 21:00 Room Air 01/25/19 20:59 74 115/72 01/25/19 20:00 98.5 74 17 115/72 (86) 99 01/25/19 16:30 98.2 77 18 130/80 (97) 99 Intake and Output 01/25/19 01/26/19 18:59 06:59 Intake Total 360 ml 120 ml Balance 360 ml 120 ml Intake Oral 360 ml 120 ml # Voids 4 3 # Bowel Movements 2 Laboratory Tests Test 01/26/19 04:50 White Blood Count 5.3 K/UL (4.8-10.8) Red Blood Count 3.57 M/UL (4.20-5.40) L Hemoglobin 12.1 G/DL (12.0-16.0) Hematocrit 35.1 % (37.0-47.0) L Mean Corpuscular Volume 98 FL (80-99) Mean Corpuscular Hemoglobin 33.9 PG (27.0-31.0) H Mean Corpuscular Hemoglobin Concent 34.4 G/DL (32.0-36.0) Red Cell Distribution Width 16.3 % (11.6-14.8) H Platelet Count 175 K/UL (150-450) # Mean Platelet Volume 6.1 FL (6.5-10.1) L Neutrophils (%) (Auto) 41.8 % (45.0-75.0) L Lymphocytes (%) (Auto) 37.6 % (20.0-45.0) Monocytes (%) (Auto) 14.8 % (1.0-10.0) H Eosinophils (%) (Auto) 4.6 % (0.0-3.0) H Basophils (%) (Auto) 1.2 % (0.0-2.0) Sodium Level 137 MMOL/L (136-145) Potassium Level 3.6 MMOL/L (3.5-5.1) Chloride Level 104 MMOL/L (98-107) Carbon Dioxide Level 23 MMOL/L (21-32) Anion Gap 10 mmol/L (5-15) Blood Urea Nitrogen 7 mg/dL (7-18) Creatinine 0.6 MG/DL (0.55-1.30) Estimat Glomerular Filtration Rate > 60 mL/min (>60) Glucose Level 95 MG/DL (74-106) Calcium Level 9.4 MG/DL (8.5-10.1) Phosphorus Level 4.4 MG/DL (2.5-4.9) Magnesium Level 1.6 MG/DL (1.8-2.4) L Total Bilirubin 1.1 MG/DL (0.2-1.0) H Direct Bilirubin 0.5 MG/DL (0.0-0.3) H Gamma Glutamyl Transpeptidase 2880 U/L (5-85) H Aspartate Amino Transf (AST/SGOT) 121 U/L (15-37) H Alanine Aminotransferase (ALT/SGPT) 117 U/L (12-78) H Alkaline Phosphatase 192 U/L (46-116) H Total Protein 6.7 G/DL (6.4-8.2) Albumin 3.1 G/DL (3.4-5.0) L Globulin 3.6 g/dL Albumin/Globulin Ratio 0.9 (1.0-2.7) L Laboratory Tests 01/26/19 04:50: White Blood Count 5.3, Red Blood Count 3.57L, Hemoglobin 12.1, Hematocrit 35.1L , Mean Corpuscular Volume 98, Mean Corpuscular Hemoglobin 33.9H, Mean Corpuscular Hemoglobin Concent 34.4, Red Cell Distribution Width 16.3H, Platelet Count 175#, Mean Platelet Volume 6.1L, Neutrophils (%) (Auto) 41.8L, Lymphocytes (%) (Auto) 37.6, Monocytes (%) (Auto) 14.8H, Eosinophils (%) (Auto) 4.6H, Basophils (%) (Auto) 1.2, Sodium Level 137, Potassium Level 3.6, Chloride Level 104, Carbon Dioxide Level 23, Anion Gap 10, Blood Urea Nitrogen 7, Creatinine 0.6, Estimat Glomerular Filtration Rate > 60, Glucose Level 95, Calcium Level 9.4, Phosphorus Level 4.4, Magnesium Level 1.6L, Total Bilirubin 1.1H, Direct Bilirubin 0.5H, Gamma Glutamyl Transpeptidase 2880H, Aspartate Amino Transf (AST/SGOT) 121H, Alanine Aminotransferase (ALT/SGPT) 117H, Alkaline Phosphatase 192H, Total Protein 6.7, Albumin 3.1L, Globulin 3.6, Albumin/Globulin Ratio 0.9L Height (Feet): 5 Height (Inches): 3.00 Weight (Pounds): 180 General Appearance: no apparent distress Objective no change Mukul Mccracken MD Jan 26, 2019 12:19
[2019-01-26] MEDS ORDERED: KEPPRA500 MG ORAL (15:39)
[2019-01-26] MEDS ORDERED: FOLIC ACID1 MG ORAL (15:39)
[2019-01-26] MEDS ORDERED: METOPROLOL TART50 MG ORAL (15:39)
[2019-01-26] MEDS ORDERED: FLUOXETINE HCL20 MG ORAL (15:39)
--- NOTE | 2019-01-26 15:40 | Discharge Instructions ---
Discharge Instructions Discharge Instructions Follow up with: pcp in 2 weeks Call MD/Return to Hospital if: Seizure activity, Diet: regular Resume Normal Activity?: Yes Activity: resume normal activities For Congestive Heart Failure Reminder Report to your physician any weight gain of 5 pounds or more in one week. Marlen Pruett MD Jan 26, 2019 15:40
[2019-01-26 16:00] VITALS: BP 123/87
--- NOTE | 2019-01-26 16:42 | General Progress Note ---
Assessment/Plan Assessment/Plan Assessment/Recs: # Thrombocytopenia - potential causes multifactorial, likely related to drug use , myelosuppresion from street drugs --> Hep panel ordered and HIV is negative --> US abd to evaluate for cirrhosis and hsm reviewed --> Peripheral smear ordered to evaluate for blasts /schistocytes shows none --> abx and other meds have been reviewed --> ok for ppx if plt >50k w/ either heparin or lovenox --> Transfuse if Plt < 20k and fever, or if Plt < 10k without fever --> trend plts 53k-->66k-->110k-->175 # Anemia of chronic disease due to underlying chronic medical issues, multifactorial can be due to drug use --> Anemia workup has been reviewed, ferritin 1370 --> No evidence of hemolysis is noted, peripheral smear has been reviewed. --> Hgb goal >7. Transfuse prn. --> Epogen or iron at this time is not particularly indicated --> Medications have been reviewed # New onset seizures likely multifactorial: electrolyte abnormalities/ ETOH w/d / Benzo withdraw --> consider neuro eval # ETOH abuse --> monitor for withdrawal symptoms --> recommend cessation # Benzo abuse --> seizure precautions have been given --> s/p keppra load in ED # Hypokalemia # Hypomagnesemia # Hyponatremia --> repleted with IV # HTN --> Cont metoprolol --> discontinue HCTZ due to electrolyte abnormalities The timing of this note does not necessarily reflect the time of the patient was seen. Greatly appreciate consultation! Subjective Constitutional: Denies: no symptoms, chills, diaphoresis, fever, malaise, weakness, other HEENT: Denies: no symptoms, eye pain, blurred vision, tearing, double vision, ear pain, ear discharge, nose pain, nose congestion, throat pain, throat swelling, mouth pain, mouth swelling, other Cardiovascular: Denies: no symptoms, chest pain, edema, irregular heart rate, lightheadedness, palpitations, syncope, other Respiratory: Denies: no symptoms, cough, orthopnea, shortness of breath, SOB with excertion, SOB at rest, sputum, stridor, wheezing, other Gastrointestinal/Abdominal: Denies: no symptoms, abdomen distended, abdominal pain, black stools, tarry stools, blood in stool, constipated, diarrhea, difficulty swallowing, nausea, poor appetite, poor fluid intake, rectal bleeding , vomiting, other Genitourinary: Denies: no symptoms, burning, discharge, frequency, flank pain, hematuria, incontinence, pain, urgency, other Endocrine: Denies: no symptoms, excessive sweating, flushing, intolerance to cold, intolerance to heat, increased hunger, increased thirst, increased urine, unexplained weight gain, unexplained weight loss, other Allergies: Uncoded Allergies: PENICILLIN (Allergy, Unknown, 01/22/19) Subjective 01/25: seen by bedside, awake, comfortable, no events, ferritin 1370 01/26: awake, comfortable, no events reported Objective Last 24 Hour Vital Signs Date Time Temp Pulse Resp B/P (MAP) Pulse Ox O2 Delivery O2 Flow Rate FiO2 01/26/19 12:00 98.1 73 16 106/70 (82) 95 01/26/19 09:00 Room Air 01/26/19 08:18 63 115/71 01/26/19 08:00 98.7 86 18 131/84 (100) 98 01/26/19 04:00 97.6 63 15 115/71 (86) 98 01/26/19 00:00 98.6 69 17 126/79 (95) 99 01/25/19 21:00 Room Air 01/25/19 20:59 74 115/72 01/25/19 20:00 98.5 74 17 115/72 (86) 99 Intake and Output 01/25/19 01/26/19 19:00 07:00 Intake Total 360 ml 120 ml Balance 360 ml 120 ml Intake Oral 360 ml 120 ml # Voids 4 3 # Bowel Movements 2 Laboratory Tests 01/26/19 04:50: White Blood Count 5.3, Red Blood Count 3.57L, Hemoglobin 12.1, Hematocrit 35.1L , Mean Corpuscular Volume 98, Mean Corpuscular Hemoglobin 33.9H, Mean Corpuscular Hemoglobin Concent 34.4, Red Cell Distribution Width 16.3H, Platelet Count 175#, Mean Platelet Volume 6.1L, Neutrophils (%) (Auto) 41.8L, Lymphocytes (%) (Auto) 37.6, Monocytes (%) (Auto) 14.8H, Eosinophils (%) (Auto) 4.6H, Basophils (%) (Auto) 1.2, Sodium Level 137, Potassium Level 3.6, Chloride Level 104, Carbon Dioxide Level 23, Anion Gap 10, Blood Urea Nitrogen 7, Creatinine 0.6, Estimat Glomerular Filtration Rate > 60, Glucose Level 95, Calcium Level 9.4, Phosphorus Level 4.4, Magnesium Level 1.6L, Total Bilirubin 1.1H, Direct Bilirubin 0.5H, Gamma Glutamyl Transpeptidase 2880H, Aspartate Amino Transf (AST/SGOT) 121H, Alanine Aminotransferase (ALT/SGPT) 117H, Alkaline Phosphatase 192H, Total Protein 6.7, Albumin 3.1L, Globulin 3.6, Albumin/Globulin Ratio 0.9L Height (Feet): 5 Height (Inches): 3.00 Weight (Pounds): 180 Objective PE General Appearance: WD/WN, no apparent distress, alert, lethargic Lines, tubes and drains: peripheral HEENT: normocephalic, atraumatic, anicteric, mucous membranes moist, Neck: non-tender, normal alignment, supple, normal inspection Respiratory/Chest: chest wall non-tender, lungs clear Cardiovascular/Chest: normal peripheral pulses, normal rate Abdomen: normal bowel sounds, non tender Extremities: normal range of motion Skin Exam: normal pigmentation 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
--- NOTE | 2019-01-26 18:33 | NUR ---
NURSE NOTES: Patient discharged to [facility]. RN accompanied patient downstairs where [facility] digital media representative picked the patient up. Confirmed bulk picker with nursing unit manager Tirso. IV site safely removed, covered with gauze and tape. Patient notably in stable condition, breathing unlabored on room air. Denied respiratory distress, pain, anxiety at time of discharge. Belongings reviewed and confirmed with the patient.
--- NOTE | 2019-01-28 00:26 | Discharge Summary ---
Discharge Summary Hospital Course Date of Admission Jan 23, 2019 at 01:52 Date of Discharge Jan 26, 2019 at 18:36 Admitting Diagnosis Seizure, hypokalemia TANIYA Gomes is a 28 year old female who was admitted on Jan 23, 2019 at 01:52 for Seizure,Hypokalemia Hospital Course Pt admitted for new onset seizures likely 2/2 electrolyte abnormalities less likely ETOH withdraw or benzodiazepine withdraw was loaded with keppra in ED. Pt noted to have severe hypokalemia and hypomagnesemia, received IV repletion with normalization of electrolyte levels. Pt evaluated by neurology, MRI brain unremarkable, EEGwith no seizure activity, started on Keppra 500mg BID, decreased to 250mg BID, will continue for 7 days then decreas to 250mg daily then discontinue. On discharge pt ambulating with a stable gait, hemodynamically stable and tolerating PO intake. Primary diagnosis: #New onset seizures likely multifactorial: electrolyte abnormalities/ ETOH w/d/ Benzo withdraw #ETOH abuse #Benzo abuse -seizure precautions -s/p keppra load in ED -CT head and MRI brain unremarkable -Neurology consulted -On discharge cont Keppra 250mg BID x 7 days then 250mg daily then discontinue Secondary diagnosis #Hypokalemia #Hypomagnesemia #Hyponatremia -repleted with IV -CTM -Nephrology consulted -hold HCTZ #HTN -BP improved -Cont metoprolol increased to 50mg BID -discontinue HCTZ due to electrolyte abnormalities #THrombocytopenia - improving #Transaminitis likely 2/2 ETOH #ETOH fatty liver -daniel 2/2 etoh abuse, liver injury -CTM -hold heparin products -Hematology consulted -Avoid hepatic toxic drugs 35 min was dedicated to discharge planning Code status with discussion: Full I spent 40 min on this patients care, and 32 min was dedicated to counseling and /or care coordination - Discharge Medications New Medications: Fluoxetine Hcl* (Fluoxetine Hcl*) 20 Mg Capsule 20 MG ORAL DAILY for 30 Days, #30 CAP Folic Acid* (Folic Acid*) 1 Mg Tablet 1 MG ORAL DAILY for 30 Days, #30 TAB Levetiracetam (Keppra) 250 Mg Tablet 250 MG ORAL Q12HR for 13 Days, #19 TAB Please take 250mg BID x 6 days then 250mg Daily then stop taking. Metoprolol Tartrate* (Metoprolol Tartrate*) 50 Mg Tablet 50 MG ORAL Q12HR for 30 Days, #60 TAB Discontinued Medications: Amlodipine Besylate* (Amlodipine Besylate*) 2.5 Mg Tablet 2.5 MG ORAL DAILY, TAB Hydrochlorothiazide* (Hydrochlorothiazide*) 12.5 Mg Capsule 12.5 MG ORAL DAILY, CAP Metoprolol Tartrate* (Metoprolol Tartrate*) 25 Mg Tablet 25 MG ORAL EVERY 12 HOURS, TAB Discharge Condition Upon Discharge: stable Discharge Disposition Patient was discharged [facility] Discharge Diagnoses: (1) Hypokalemia (2) Hypomagnesemia (3) Seizure (4) Thrombocythemia (5) Alcoholic liver disease (6) Hypertension (7) Anxiety disorder (8) Alcohol dependence (9) Alcohol withdrawal Discharge Instructions Discharge Instructions Follow up with: pcp in 2 weeks Call MD/Return to Hospital if: Seizure activity, Activity: resume normal activities Marlen Pruett MD Jan 28, 2019 00:26
--- NOTE | 2019-01-28 09:33 | Cardiology Report ---
APPROVED REPORT EKG Measurement Heart [id number] Normal sinus rhythm Prolonged QT Abnormal ECG
== END 2019-01-26 18:36 | DRG 641 ==
LOC: EDBD 23:06 → EMR 23:45 → 2E 01-23 01:52 → EDBEDREQ 01-23 01:53 → 2E 01-23 05:34 → 4E 01-24 17:15
DX: E87.6 Hypokalemia (principal); F10.239 Alcohol dependence with withdrawal, unspecified; F13.239 Sedative, hypnotic or anxiolytic dependence with withdrawal, unspecified; R56.9 Unspecified convulsions; E87.1 Hypo-osmolality and hyponatremia; E83.42 Hypomagnesemia; I10 Essential (primary) hypertension; D69.6 Thrombocytopenia, unspecified; K70.0 Alcoholic fatty liver; K70.9 Alcoholic liver disease, unspecified; Z88.0 Allergy status to penicillin; D63.8 Anemia in other chronic diseases classified elsewhere
CPT/HCPCS: 36415; 70450; 70553; 76700; 80048; 80053; 80061; 80299; 80307; 81001; 81025; 82248; 82550; 82607; 82728; 82746; 82977; 83010; 83036; 83615; 83735; 83880; 83930; 84100; 84132; 84443; 84550; 85007; 85025; 85044; 85060; 85384; 86140; 86703; 86705; 86709; 86803; 87324; 87340; 93005; 95819; 96374; 99285; A9585; J8499